=== PATIENT | female | born 1995 | race Caucasian/White ===

== ENCOUNTER → 2018-01-12 11:04 | Outpatient (CLI) | payer OTHER, SELFPAY ==
[2018-01-12 12:10] LABS: hCG Titer Quant., Serum 1351 mIU/mL (<9 non-preg)
== END ==
PROVIDERS: Family Provider Family Medicine; PCP Family Medicine; Referring Provider Nurse Practitioner Women's Health; Visit Provider Nurse Practitioner Women's Health
DX: N91.2 Amenorrhea, unspecified (principal)
CPT/HCPCS: 36415; 84702

== ENCOUNTER → 2018-01-14 07:51 | Outpatient (CLI) | payer OTHER, SELFPAY ==
[2018-01-14 09:39] LABS: hCG Titer Quant., Serum 3346 mIU/mL (<9 non-preg)
--- OUTSIDE RECORDS SUMMARY | 2018-03-11 12:09 | XMS RPT_ITS ---
:1995 Author Organization OHIP Care Team Providers Name Role Phone Yazmin Mooney Attending Unavailable GARY FRANKS Referring Unavailable Napier, Molly Attending Unavailable Yazmin Mooney Referring Unavailable GARY FRANKS Primary Care Unavailable Yazmin Mooney Attending Unavailable Yazmin Mooney Referring Unavailable GARY FRANKS Primary Care Unavailable JesicaYazmin Attending Unavailable Yazmin Mooney Referring Unavailable GARY FRANKS Primary Care Unavailable NapierYazmin Attending Unavailable NapierYazmin Referring Unavailable GARY FRANKS Primary Care Unavailable PROBLEMS PROBLEMS DATE TYPE CONDITION / CODE ATTENDING STATUS SOURCE 01/30/2018 Unknown O99.89 - Other Yazmin Mooney Active [facility] specified diseases Community and conditions Hospital complicating Repository , childbirth and the puerperium / O99.89(ICD-10) 01/27/2018 Unknown Z34.90 - Encounter Yazmin Mooney Active [place] for supervision of [facility] normal , Hospital unspecified, Repository unspecified trimester / Z34.90(ICD-10) 01/27/2018 Unknown Z34.01 - Encounter Yazmin Mooney Active [place] [facility] for supervision of [facility] normal first Hospital , first Repository trimester / Z34.01(ICD-10) 01/27/2018 Unknown Z3A.01 - Less than Yazmin Mooney Active [facility] 8 weeks gestation Community of / Hospital Z3A.01(ICD-10) Repository PROCEDURES PROCEDURES No Procedure Records FoundRESULTS RESULTS GLUCOSE CHALLENGE GEST Collected: 01/27/2018 Status: F Source: LD 1H 50G 10:00 AM [facility] REPOSITORY TYPE CODE TESTS RESULT OUT OF RANGE REFERENCE UNITS LAB L501.0250 70-140 mg/dL Normal GLU GEST 114 50g 1H Performed By: #### L501.0250 #### [facility] [address] [place] [address], [id number] CBC W/DIFF, AUTOMATED Collected: 01/27/2018 Status: F Source: LD 9:51 AM [facility] REPOSITORY TYPE CODE TESTS RESULT OUT OF RANGE REFERENCE UNITS LAB L100.1000 4.4-11.0 K/mm3 Normal WBC 5.9 LAB L100.1200 4.2-5.4 M/mm3 Low RBC 4.15 LAB L100.1300 12.0-15.0 g/dl Normal HGB 12.9 LAB L100.1400 37-47 % Normal HCT 37.0 LAB L100.1500 81-99 fL Normal MCV 89.2 LAB L100.1600 27.0-32.0 pg Normal MCH 31.1 LAB L100.1700 32-36 g/gl Normal MCHC 34.9 LAB L100.1810 11.6-14.6 % Normal RDW CV 13.1 LAB L100.1820 35.1-43.9 fl Normal RDW SD 42.1 LAB L100.1900 150-450 K/mm3 Normal PLT 220 LAB L100.2000 6.2-12.0 fl Normal MPV 9.9 LAB L100.2100 47-70 % High NEUT% 75.5 LAB L100.2200 19-41 % Low LY% 18.8 LAB L100.2300 0-10 % Normal MONO% 5.1 LAB L100.2400 0-5 % Normal EO% 0.2 LAB L100.2500 0-1 % Normal BASO% 0.2 LAB L100.2550 0.0-0.9 % Normal IM GRAN % 0.200 Result Comment: IG% - Immature Granulocytes (promyelocytes, myelocytes and metamyelocytes) > 1% indicates that a LEFT SHIFT is Present. LAB L100.2620 2.0-7.7 X10 3/uL Normal Absolute Neut 4.5 LAB L100.2720 0.83-4.51 X10 3/ul Normal Absolute Lymph 1.11 Performed By: #### L100.0100 #### [facility] [address] [place], [place], [address] TYPE AND SCREEN Collected: 01/27/2018 Status: F Source: VANDEMERE 9:51 AM [facility] REPOSITORY Order Comment: Reason for Type AND Screen/Red Cells: TYPE CODE TESTS RESULT OUT OF RANGE REFERENCE UNITS LAB B10.0800 O Normal BLOOD TYPE GEL POSITIVE LAB B100.4000 Normal Antibody NEGATIVE Screen Performed By: #### B101.7450 #### [facility] [address] [place], [place], [address] RUBELLA IGG Collected: 01/27/2018 Status: F Source: VANDEMERE 9:51 [facility] REPOSITORY TYPE CODE TESTS RESULT OUT OF RANGE REFERENCE UNITS LAB L509.4000 IU/mL Normal Rubella IgG 172.1 Result Comment: Antibody results Interpretation of Immune Status < 5 IU/ml Presumed Non-immune 5 - < 10 IU/ml Equivocal > or = 10 IU/ml Presumed Immune Performed By: #### L509.4000, L3890.6005 #### [facility] [address] [place], [place], [address] HIV - H Collected: 01/27/2018 Status: F Source: LD 9:51 AM [facility] REPOSITORY TYPE CODE TESTS RESULT OUT OF RANGE REFERENCE UNITS LAB L3890.6005 Nonreactive Normal HIV - [facility] Non-Reactive Performed By: #### L509.4000, L3890.6005 #### [facility] [address] [place], [place], [address] HEPATITIS B SURFACE Collected: 01/27/2018 Status: F Source: LD AG 9:51 AM [facility] REPOSITORY TYPE CODE TESTS RESULT OUT OF RANGE REFERENCE UNITS LAB L3100.0400 Negative Normal HB Negative SURF AG Result Comment: Performed at: [facility] [id number] Clinical Team Manager: Figueroa Colunga PhD, Phone: [phone] Performed By: #### L3100.0390 #### [facility] (refer to report for specific site) refer to report for address and phone number RAPID PLASMIN REAGIN Collected: 01/27/2018 Status: F Source: LD (RPR) 9:51 AM [facility] REPOSITORY TYPE CODE TESTS RESULT OUT OF REFERENCE UNITS RANGE LAB L700.5000 NONREACTIVE NONREACTIVE Normal RPR Performed By: #### L700.5000 #### [facility] [address] [place], [place], [address] DETECTIVE AUTOMOBILE SECTION OFFICE VISIT Observed: 01/27/2018 Status: F Source: LD REPORT 9:50 AM [facility] REPOSITORY [facility] [address] [place] [address] OFFICE VISIT Date of Service: 01/27/18 MR#: [id number] Acct: [id number] Name: LILLIAN ELLIS Rep #: [id number] : 1995 Provider: TIARRA Mooney Age/Sex: 23/F Location: [facility] Status: Signed Intake Vital Signs01/27/18 Blood Pressure 120/78 01/27/18 Height 5 ft 7 in 01/27/18 Weight: 269 lb 01/27/18 Body Mass Index (BMI) 42.1 Intake Visit Reasons: NOB-LMP unknown (Approx 6 weeks) Chief Complaint: NEW OB Nurse Practitioner Per Diem Required: No Is patient in pain?: No Allergies acetaminophen [From Percocet] Adverse Reaction (Verified 01/27/18 08:54) Nausea oxycodone [From Percocet] Adverse Reaction (Verified 01/27/18 08:54) Nausea Medications vitamin#30 30 mg iron-10 mg iron-folic acid 1 mg- omg3 capsule cap PO cap 01/27/18 [History Confirmed 01/27/18] Last Menstral Period: 12/05/16 Zika: Zika virus screening: Negative : No PFSH PFSH Social History Smoking Status: Never smoker alcohol intake: never substance use type: does not use caffeine: Yes what type of physical activity do you participate in: walking seatbelt use: always do you feel safe at home: Yes additional social history: [facility] Sw[employer] patient works at [employer] Pregancy History 1 Elective abortions Hx Para Spontaneous abortions HPI NOB-LMP unknown (Approx 6 weeks): Details: LILLIAN ELLIS is a 23 year old who presents for New OB visit. OB Visit JESSI Calculator Estimated Delivery Date 09/18/18 Based on Ultrasound Date 01/27/18 Current WG 6w 4d Number 1 Expected Delivery Route/Plan Specific Issue/Plans flu vaccine: given minichart given: given tdap vaccine: [] rhogam: [] LARC form signed: [] labor support person: Cesar pain management: [] cut cord/dad catch: [] : [] PP control planned: [] special requests: [] Initial Weight: Not Recorded Date Weight BP Urine PrFHR FuHt Pres MoCTX DilationFetal StVisit NoProviderComments E ot v te GA G Effac lucose ed Menstrual History Last Menstral Period: 12/05/16 Reported LMP: unknown On hormonal BC at conception: No hCG+: 01/08/18 Antepartum Record Genetic Screening: Congenital Heart Defect: Other, Neural Tube Defect: Other, Hemoglobinopathy Or Carrier: Other, Cystic Fibrosis: Other, Chromosome Abnormality: Other, Stuart-Sachs: Other, Hemophilia: Other, Intellectual Disability/Autism: Other, Recurrent Loss/Stillbirth: Other, Other Structural Defect: Other, Other Genetic Disease: Other, Maternal Metabolic Disorder: Other Comments/Counseling: Reviewed and negative Infection History: Live with someone with TB or Exposed to TB: No, Patient or Partner has history of Genital Herpes: No, Rash or Viral illness since last mentrual period: No, Prior GBS-Infected child: No, History of STD: No, HIV Infection: No, History of Hepatitis: No, Recent travel outside of [place]: Yes ([place]), Concern for Hep exposure: No, Varicella immune: Yes (had chicken pox) Medical History Medical History: Positive: Drug/latex allergies/reactions (percocet/nausea), Negative: Diabetes, Hypertension, Heart disease, Auto-immune disorder, Kidney disease/UTI, Neurologic/epilepsy, Psychiatric, Depression/ depression, Hepatitis/liver disease, Varicosities/phlebitis, Thyroid dysfunction, Trauma/domestic violence, History of blood transfusions, D (Rh) Sensitized, Pulmonary (e.g.,TB,Asthma), Seasonal allergies, Breast, Cushion Spring Assembler surgery, Operations/hospitalizations, Anesthetic complications, History of abnormal pap, Uterine anomaly/hudson, Infertility, Anti-retroviral treatment, Relevant family history, Other ACOG First Trimester First Trimester: Desire for , Alcohol, Tobacco Cessation, Illicit/Recreational Drug/Substance Use, Intimate Partner Violence, Barriers to care, Unstable Housing, Communication Barriers, Environmental/Work Hazards, Anticipated Course of Care, Nurtrition and weight gain, Toxoplasmosis Precations, Use of Any medications, Sexual activity, Exercise, Dental Care, Sauna/Hot tub use, Seat Belt use, Childbirth classes/Hospital facilities, , Travel, Indications for US and Screening for Aneuploidy ROS Const Reports as per HPI Card Denies chest pain, Denies shortness of breath Resp Denies shortness of breath GI Denies change in stools Denies difficulty urinating, Denies abnormal vaginal bleeding, Denies vaginal odor, Denies vaginal itching, Denies vaginal discharge Exam Const General: cooperative, healthy appearing, well developed Nutritional Appearance: average body habitus, well nourished Orientation: oriented x3 Neck Neck: normal visual inspection Neck mass: No Thyroid: thyroid normal Chest Chest palpation AND inspection: normal inspection of the chest Breast inspection: normal inspection of the breasts, normal inspection of the axillae Resp Effort AND Inspection: normal respiratory effort GI Inspection: normal to inspection Palpation: soft, nontender, no masses External Female Exam: normal external appearance, normal appearance of the urethra Urethra: normal appearance of the urethra Speculum Exam - Vagina: normal appearance of the vagina, normal vaginal discharge Speculum Exam - Cervix: normal appearance of the cervix, closed cervix, other (thin prep pap with reflex HPV, GCC collected) Bimanual Exam- Vagina AND Uterus: normal bimanual exam, uterine shape normal, uterine size normal Bimanual Exam- Adnexa, other: normal adnexae, no adnexal masses, adnexae non-tender Other: US confirm active IUD with FHT CRL 8mm with gest 6 w 4 d Skin General: no rashes or lesions noted, turgor normal Assessment AND Plan Problems 1. Encounter for supervision of normal first in first trimester Z34.01 Grav 1 JESSI 09/18/18 Spouse Cesar 2. Less than 8 weeks gestation of Z3A.01 Checking insurance/wants genetic screen. Plan Patient oriented to practice and discussed care expectations and screenings. ACOG book offered to patient. labs/zika ordered Genetic screening offered to patient and patient chose: plans screen/checking insurance coverage RTO 4 weeks Orders Orders: Coding Level of Care Code Off vis,est,level 4 Diagnoses Encounter for supervision of normal first in first trimester Z34.01 Trimester: first trimester Less than 8 weeks gestation of Z3A.01 Weeks of gestation: less than 8 weeks 01/27/18 0950 <Electronically signed by Yazmin HAQUE> Date Yazmin HAQUE Cosigner Signature: Date (if applicable) CC: CT/NG [facility] BY PCR Collected: 01/27/2018 Status: F Source: LD 9:00 AM [facility] REPOSITORY TYPE CODE TESTS RESULT OUT OF RANGE REFERENCE UNITS LAB L8200.2100 Negative Normal Chlam Negative Trac PCR LAB L8200.2200 Negative Normal NG by Negative PCR Performed By: #### L8200.1999 #### [facility] [address] [place], [address] Observed: 01/27/2018 Status: F Source: LD CULTURE, URINE 9:00 AM [facility] REPOSITORY Urine Culture ORGANISM 1: Presumptive E. coli Tresckow Count 11,000-25,000 Presumptive E. coli: REACTION Amoxacillin/Clavulanic Acid $ <=2 S Ampicillin $ <=2 S Ampicillin/Sulbactam $ <=2 S Cefazolin $ <=4 S Cefepime $ <=1 S Ceftriaxone $ <=1 S Ciprofloxacin $ <=0.25 S ESBL - Ertapenim $$$ <=0.5 S Gentamicin $ <=1 S Imipenem *NF <=0.25 S Levofloxacin $ <=0.12 S Nitrofurantoin $ <=16 S Piperacillin/Tazobactam $$ <=4 S Tobramycin $ <=1 S Trimethoprim/Sulfametho $ <=20 S (NF) indicates non-formulary drug at [facility]. Approval by Infectious Disease Specialist required before non-formulary drugs may be ordered and/or dispensed. Performed By: #### M100.0650 #### [facility] [address] [place], [address] PAP I-G W/RFX Collected: 01/27/2018 Status: F Source: LD HRHPV-APTIMA 9:00 AM [facility] REPOSITORY Order Comment: CYTOLOGY INFORMATION: - CLINICAL INFORMATION: - DATE LMP/MENOPAUSE: - COLLECTION VIAL: Thin Prep Vial - SUPERVISOR LOOPING SOURCE: CERVICAL/ENDOCERVICAL - COLLECTION TECHNIQUE: BRUSH/SPATULA Specimen Comment: [id number] Specimen Comment: Source.............Cervix;Endocervix Specimen Comment: No. of containers..01 ThinPrep Vial TYPE CODE TESTS RESULT OUT OF RANGE REFERENCE UNITS LAB L7400.0800 . Normal DIAGN Comment Result Comment: NEGATIVE FOR INTRAEPITHELIAL LESION AND MALIGNANCY. CELLULAR CHANGES ASSOCIATED WITH INFLAMMATION ARE PRESENT. LAB L7400.0900 . Normal ADEQ Comment Result Comment: Satisfactory for evaluation. Endocervical and/or squamous metaplastic cells (endocervical component) are present. Partially obscuring thick areas are present. LAB L7400.1400 . Normal PERFORM Comment Result Comment: Leslie Wetzel, Rug Cleaner (ASCP) LAB L7400.3938 . Normal Test not TEST METHOD performed Result Comment: The Thin Prep(R) Concrete Layer was unable to read this specimen. Therefore a manual review was performed. LAB L7400.2600 . Normal . COMM LAB L7400.2700 . Normal PAPSMR Comment Result Comment: The Pap smear is a screening test designed to aid in the detection of premalignant and malignant conditions of the uterine cervix. It is not a diagnostic procedure and should not be used as the sole means of detecting cervical cancer. Both false-positive and false-negative reports do occur. LAB L7400.2800 . Normal HPV RFLX Comment Result Comment: The HPV DNA reflex criteria were not met with this specimen result therefore, no HPV testing was performed. Performed at: [facility] [address] [id number] Clinical Team Manager: Pauline Mercado MD, Phone: [phone] Performed By: #### L7400.0353 #### [facility] (refer to report for specific site) refer to report for address and phone number TRANSVAGINAL W/PREG US Observed: 01/20/2018 Status: F Source: VANDEMERE 3:35 PM [facility] REPOSITORY [facility] Imaging Services [address] [place] [address] Transvaginal w/Preg US MR#: [id number] Acct: [id number] Name: LILLIAN ELLIS Blayne Rep #: [id number] : 1995 F 22 From: Vladimir Richards MD PCP: Gary Franks MD Status: REG CLI Study: Transvaginal w/Preg US Date of Exam: 01/20/18 Exam# [id number] Ordering Dr: Yazmin Mooney FILLING ROOM OPERATOR-Harsha STUDY: FIRST TRIMESTER OBSTETRICAL ULTRASOUND REASON FOR EXAM: Female, 22 years old. Pelvic pain LMP: 12/01/2017 TECHNIQUE: Transvaginal TECHNICAL QUALITY: Adequate. PRIOR ULTRASOUND: None. FINDINGS: There is visualization of a single gestational sac in a normal intrauterine position. The mean sac diameter (MSD) measures 1.46 cm, indicating an estimated gestational age (EGA) of 6 weeks, 2 days. The gestational sac shape is within normal limits. There is a visualized yolk sac. The yolk sac measures 0.32 cm. The placenta is non-visualized. There is visualization of a live embryo. The crown-rump length (CRL) measures 0.48 cm, indicating an estimated gestational age (EGA) of 6 weeks, 2 days. There is demonstrated cardiac activity with a heart rate of 111 bpm. The estimated gestation age (EGA) by LMP is 7 weeks, 1 days. The estimated date of delivery (JESSI) by LMP is 09/07/2018. The estimated gestation age (EGA) by US is 6 weeks, 2 days. The estimated date of delivery (JESSI) by US is 09/13/2018. The uterus measures 8.2 x 5.4 x 4.6 cm. There is no demonstrated uterine fibroid. The cervix is closed. The right ovary measures 3.8 x 3.1 x 2.4 cm. There are simple right ovarian cysts. The left ovary measures 2.6 x 1.8 x 1.3. There is no left ovarian cyst. There is no visualized left adnexal mass or complex lesion. There is no fluid in the cul de sac. US/Transvaginal w/Preg US IMPRESSION: Single live intrauterine at 6 weeks, 2 days by current ultrasound. JESSI of 09/13/2018. Heart rate of 111 bpm. No suspicious sonographic findings Electronically Signed: Kris Richards MD at 17:13 EST , Service support , CC: TIARRA Mooney; Gary Franks MD Wad Impregnator: Signed HCG TITER QUANT., Collected: 01/14/2018 Status: F Source: LD SERUM 7:56 AM [facility] REPOSITORY TYPE CODE TESTS RESULT OUT OF RANGE REFERENCE UNITS LAB L700.8000 <9 non-preg mIU/mL High HCG 3346 QUANT. Performed By: #### L700.8000 #### [facility] [address] [place], [address] HCG TITER QUANT., Collected: 01/12/2018 Status: F Source: LD SERUM 11:12 AM [facility] REPOSITORY TYPE CODE TESTS RESULT OUT OF RANGE REFERENCE UNITS LAB L700.8000 <9 non-preg mIU/mL High HCG 1351 QUANT. Performed By: #### L700.8000 #### [facility] [address] [place], [address] ALLERGIES ALLERGIES DATE TYPE / CODE NAME / CODE REACTION SEVERITY SOURCE 01/27/2018 Drug oxycodone/F0 Nausea Unknown [facility] Allergy/4160 [id number](RXN [facility] 95882(SNOMED ORM) Repository CT) 01/27/2018 Drug acetaminophe Nausea Unknown [facility] Allergy/4160 n/[id number] [place] [id number](SNOMED (RXNORM) Repository CT) ENCOUNTERS ENCOUNTERS ADMIT/DISCHARGE ACCOUNT ADMITTING ENCOUNTER LOCATION SOURCE NUMBER CLASS 01/27/2018 [id number] Ambulatory Ld [place] [facility] 9 [facility] ing:PAVLAB Repository 01/27/2018/ [id number] Ambulatory BMSBuilding:B [place] 8 8 [facility] Repository 01/20/2018 [id number] Ambulatory Ld [place] 6 [facility] ing:US Repository 01/14/2018 [id number] Ambulatory [place] 2 [facility] ing:LAB Repository 01/12/2018 [id number] Ambulatory [place] 0 [facility] ing:LAB Repository PAYERS PAYERS ENCOUNTER GUARANTOR PAYER SUBSCRIBER SOURCE 01/27/2018 LILLIAN ELLIS245 Primary LILLIAN MALDONADO: Ld JARA Insurance:MEDICAL [id number] [address]Via: (419) Number: Repository [phone] HP) [id number] Date:2018-01-27[address] [address]NK: 01/27/2018 Secondary NOT GIVENUNK [place] Insurance:SELF PAY [facility] Number: Effective Repository Date:2018-01-27 01/27/2018 LILLIAN ELLIS245 Primary LILLIAN ELLISDOB: Ld E JARA Insurance:MEDICAL [id number] [address]Kda: (419) Number: Repository [phone] () [id number] Date:2018-01-14[address] [place], [place] [address]WP: 01/27/2018 Secondary NOT GIVENUNK Ld Insurance:SELF PAY [facility] Number: Effective Repository Date:2018-01-27 01/20/2018 LILLIAN ELLIS245 Primary LILLIAN ELLISDOB: Ld E JARA Insurance:MEDICAL [id number] [address]Tnl: (419) Number: Repository [phone] () [id number] Date:2018-01-20[address] [place], [place] [address]: 01/20/2018 Secondary NOT GIVENUNK [place] Insurance:SELF PAY [facility] Number: Effective Repository Date:2018-01-20 01/14/2018 LILLIAN Cisneros [id number] Primary LILLIAN ELLISDOB: Ld E JARA Insurance:MEDICAL [id number] [address]Fqr: (419) Number: Repository [phone] () [id number] Date:2018-01-14[address] [place] [phone]: 01/14/2018 Secondary NOT GIVENUNK [place] Insurance:SELF PAY [facility] Number: Effective Repository Date:2018-01-14 01/12/2018 LILLIAN Cisneros [id number] Primary LILLIAN N CALEBDOB: [place] E JARA Insurance:MEDICAL [id number] [address]Sep: (419) Number: Repository [phone] (HP) [id number] Date:2018-01-12[address], [place] [address]AM: 01/12/2018 Secondary NOT GIVENUNK [place] Insurance:SELF PAY [facility] Number: Effective Repository Date:2018-01-12
== END ==
PROVIDERS: Family Provider Family Medicine; PCP Family Medicine; Referring Provider Nurse Practitioner Women's Health; Visit Provider Nurse Practitioner Women's Health
DX: N91.2 Amenorrhea, unspecified (principal)
CPT/HCPCS: 36415; 84702

== ENCOUNTER → 2018-01-20 15:33 | Outpatient (CLI) | payer OTHER, SELFPAY ==
--- NOTE | 2018-01-20 15:35 | US_ITS ---
STUDY: FIRST TRIMESTER OBSTETRICAL ULTRASOUND REASON FOR EXAM: Female, 22 years old. Pelvic pain LMP: 12/01/2017 TECHNIQUE: Transvaginal TECHNICAL QUALITY: Adequate. PRIOR ULTRASOUND: None. FINDINGS: There is visualization of a single gestational sac in a normal intrauterine position. The mean sac diameter (MSD) measures 1.46 cm, indicating an estimated gestational age (EGA) of 6 weeks, 2 days. The gestational sac shape is within normal limits. There is a visualized yolk sac. The yolk sac measures 0.32 cm. The placenta is non-visualized. There is visualization of a live embryo. The crown-rump length (CRL) measures 0.48 cm, indicating an estimated gestational age (EGA) of 6 weeks, 2 days. There is demonstrated cardiac activity with a heart rate of 111 bpm. The estimated gestation age (EGA) by LMP is 7 weeks, 1 days. The estimated date of delivery (JESSI) by LMP is 09/07/2018. The estimated gestation age (EGA) by US is 6 weeks, 2 days. The estimated date of delivery (JSESI) by US is 09/13/2018. The uterus measures 8.2 x 5.4 x 4.6 cm. There is no demonstrated uterine fibroid. The cervix is closed. The right ovary measures 3.8 x 3.1 x 2.4 cm. There are simple right ovarian cysts. The left ovary measures 2.6 x 1.8 x 1.3. There is no left ovarian cyst. There is no visualized left adnexal mass or complex lesion. There is no fluid in the cul de sac. US/Transvaginal w/Preg US IMPRESSION: Single live intrauterine at 6 weeks, 2 days by current ultrasound. JESSI of 09/13/2018. Heart rate of 111 bpm. No suspicious sonographic findings Electronically Signed: Kris Richards MD at 17:13 EST , Service support ,
== END ==
PROVIDERS: Family Provider Family Medicine; PCP Family Medicine; Referring Provider Nurse Practitioner Women's Health; Visit Provider Nurse Practitioner Women's Health
DX: O46.90 Antepartum hemorrhage, unspecified, unspecified trimester (principal)
CPT/HCPCS: 76817

== ENCOUNTER → 2018-01-27 09:44 | Outpatient (CLI) | payer OTHER, SELFPAY ==
[2018-01-27 08:54] VITALS: BMI 42.1
[2018-01-27 10:21] LABS: Absolute Lymphocyte Count 1.11 X10^3/ul (0.83-4.51); Absolute Neutrophil Count 4.5 X10^3/uL (2.0-7.7); Basophil# 0.01 X10^3/uL; Basophil% 0.2 % (0-1); Eosinophil# 0.01 X10^3/uL; Eosinophils% 0.2 % (0-5); Hemoglobin 12.9 g/dl (12.0-15.0); Lymphocyte # 1.11 X10^3/ul (4.0); Lymphocyte % 18.8 % (19-41); Mean Corp Hgb Conc 34.9 g/gl (32-36); Mean Corpuscular Hgb 31.1 pg (27.0-32.0); Mean Corpuscular Volume 89.2 fL (81-99); Mean Platelet Vol. 9.9 fl (6.2-12.0); Monocyte% 5.1 % (0-10); Neutrophil # 4.45 X10^3/uL (2.7-7.7); Neutrophil % 75.5 % (47-70); Platelet Count 220 K/mm3 (150-450); RBC Distribution Width CV 13.1 % (11.6-14.6); RBC Distribution Width SD 42.1 fl (35.1-43.9); Red Blood Count 4.15 M/mm3 (4.2-5.4); White Blood Count 5.9 K/mm3 (4.4-11.0)
[2018-01-27 10:23] LABS: POSITIVE COUNT NO; POSITIVE DIFFERENTIAL NO; POSITIVE MORPHOLOGY NO
[2018-01-27 10:40] LABS: Glucose Challenge Gest 1H 50g 114 mg/dL (70-140)
[2018-01-27 11:55] LABS: HIV - WCH Non-Reactive (Nonreactive); Rubella IgG 172.1 IU/mL
[2018-01-27 16:10] LABS: Chlamydia Trachomatis by PCR Negative (Negative); Neisserai gonorrhoeae by PCR Negative (Negative); Probe Check PASS; Sample Adequacy Control PASS; Specimen Processing Control PASS
[2018-01-28 13:19] LABS: HEPATITIS B SURFACE AG Negative (Negative)
[2018-01-30 04:54] LABS: Rapid Plasmin Reagin (RPR) NONREACTIVE (NONREACTIVE)
[2018-02-02 15:26] LABS: HPV Reflexed? NOT INDICATED
--- OUTSIDE RECORDS SUMMARY | 2018-03-15 09:27 | XMS RPT_ITS ---
:1995 Author Organization [place] Support Name Relationship Address Phone DOE ISRAEL Unavailable Unavailable + COLONIAL Unavailable [address] + [place] [address] CESAR ELLIS Unavailable [address] + [place] [address] DOE ISRAEL Unavailable Unavailable + [place] [address] COLONIAL Unavailable [address] + [place] [address] CESAR ELLIS Unavailable [address] + [place] [address] COLONIAL Unavailable [address] + [place] [address] CESAR ELLIS Unavailable [address] + [place] [address] COLONIAL Unavailable [address] + [place] [address] CESAR ELLIS Unavailable [address] + [place] [address] COLONIAL Unavailable [address] + [place] [address] CESAR ELLIS Unavailable [address] + [place] [address] COLONIAL Unavailable [address] + [place] [address] CESAR ELLIS Unavailable [address] + [place] [address] COLONIAL Unavailable [address] + [place] [address] CESAR ELLIS Unavailable [address] + [place] [address] COLONIAL Unavailable [address] + [place] [address] CESAR ELLIS Unavailable [address] + [place] [address] Care Team Providers Name Role Phone Jesica, Yazmin Attending Unavailable TOMCHAK, GARY Referring Unavailable Jesica, Yazmin Attending Unavailable Arivaca, Yazmin Referring Unavailable TOMCHAK, GARY Primary Care Unavailable Arivaca, Yazmin Attending Unavailable Arivaca, Yazmin Referring Unavailable TOMCHAK, GARY Primary Care Unavailable Marcanthony, Giovanna Attending Unavailable TOMCHAK, GARY Referring Unavailable Marcanthony, Giovanna Attending Unavailable Marcanthony, Giovanna Referring Unavailable TOMCHAK, GARY Primary Care Unavailable Marcanthony, Giovanna Attending Unavailable TOMCHAK, GARY Primary Care Unavailable Arivaca, Yazmin Attending Unavailable Jesica, Yazmin Referring Unavailable TOMCHAK, GARY Primary Care Unavailable Jesica, Yazmin Attending Unavailable Jesica, Yazmin Referring Unavailable TOMCHAK, GARY Primary Care Unavailable PROBLEMS PROBLEMS DATE TYPE CONDITION / CODE ATTENDING STATUS SOURCE 03/03/2018 Unknown Z34.81 - Encounter Ethan, Active [place] for supervision of [facility] normal Hospital , first Repository trimester / Z34.81(ICD-10) 02/27/2018 Unknown O23.40 - Ethan, Active [place] Unspecified [facility] infection of Hospital urinary tract in Repository , unspecified trimester / O23.40(ICD-10) 02/27/2018 Unknown Z34.01 - Encounter Ethan, Active [place] for supervision of [facility] normal first Hospital , first Repository trimester / Z34.01(ICD-10) 02/27/2018 Unknown O23.41 - Ethan, Active [place] Unspecified [facility] infection of Hospital urinary tract in Repository , first trimester / O23.41(ICD-10) 02/27/2018 Unknown Z3A.11 - 11 weeks Ethan, Active [place] gestation of [facility] / Hospital Z3A.11(ICD-10) Repository 02/12/2018 Unknown O99.89 - Other Arivaca, Yazmin Active [place] specified diseases Community and conditions Hospital complicating Repository , childbirth and the puerperium / O99.89(ICD-10) 01/27/2018 Unknown Z34.90 - Encounter Yazmin Mooney Active [place] for supervision of Community normal , Hospital unspecified, Repository unspecified trimester / Z34.90(ICD-10) 01/27/2018 Unknown Z3A.01 - Less than Jesica Yazmin Active [place] 8 weeks gestation Community of / Hospital Z3A.01(ICD-10) Repository PROCEDURES PROCEDURES No Procedure Records FoundRESULTS RESULTS Observed: 02/27/2018 Status: F Source: [place] CULTURE, URINE 1:55 PM [facility] REPOSITORY Urine Culture ORGANISM 1: Mixed Gram Positive Organisms [place] Count 1000-10,000 MIX CULTURE Mixed contaminants. Submit a new specimen if indicated. Performed By: #### M100.0650 #### [facility] [address] [place], [address] CUPOLA OPERATOR OFFICE VISIT Observed: 02/27/2018 Status: F Source: LD REPORT 10:30 AM [facility] REPOSITORY [facility] [address] [place] [address] OFFICE VISIT Date of Service: 02/27/18 MR#: [id number] Acct: [id number] Name: LILLIAN ELLIS Rep #: [id number] : 1995 Provider: Giovanna Long MD Age/Sex: 23/F Location: [facility] Status: Signed Intake Vital Signs02/27/18 Height 5 ft 7 in 02/27/18 Weight: 267 lb 2 oz 02/27/18 Body Mass Index (BMI) 41.8 02/27/18 Blood Pressure 138/84 H Intake Visit Reasons: 10 WEEK OB Rental Management Trainee Required: No Is patient in pain?: No Allergies acetaminophen [From Percocet] Adverse Reaction (Verified 02/27/18 09:49) Nausea oxycodone [From Percocet] Adverse Reaction (Verified 02/27/18 09:49) Nausea Medications vitamin#30 30 mg iron-10 mg iron-folic acid 1 mg- omg3 capsule cap PO cap 01/27/18 [History Confirmed 02/27/18] Last Menstral Period: 11/17/17 Zika: Zika virus screening: Negative : No PFSH PFSH Social History Smoking Status: Never smoker alcohol intake: never substance use type: does not use caffeine: Yes what type of physical activity do you participate in: walking seatbelt use: always do you feel safe at home: Yes additional social history: [employer] patient works at [employer] Pregancy History 1 Elective abortions Hx Para Spontaneous abortions HPI 10 WEEK OB: Details: LILLIAN ELLIS is a 23 year old who presents for routine OB visit. OB Visit JESSI Calculator Estimated Delivery Date 09/18/18 Based on Ultrasound Date 01/27/18 Current WG 11w 0d Number 1 Expected Delivery Route/Plan Specific Issue/Plans flu vaccine: given minichart given: given tdap vaccine: [] rhogam: [] LARC form signed: [] labor support person: Cesar pain management: [] cut cord/dad catch: [] : [] PP control planned: [] special requests: [] Initial Weight: 269 lb Date Weight BP Urine PFHR FuHt Pres MCTX DilatioFetal SVisit NProvideComment rot ov n t ote r s EGA Ef Gluco faced se 01/27/1269 lb 120/78 122 8 (+0 oz) 6w 4d Visit Notes Visit Date: 02/27/18 no vb lof cramping some nausea plan nipt Giovanna Long MD on 02/27/18 Visit Date: 01/27/18 No visit notes to display Diagnostics Diagnostics Labs Blood Type O POSITIVE 01/27/18 Antibody Screen NEGATIVE 01/27/18 Hct 37.0 % (37-47) 01/27/18 Hgb 12.9 g/dl (12.0-15.0) 01/27/18 Obstetrics Ultrasound 01/20/18 Rubella IgG Antibody 172.1 IU/mL 01/27/18 RPR NONREACTIVE (NONREACTIVE) 01/27/18 Hep Bs Antigen Negative (Negative) 01/27/18 Chlam trachomat DNA PCR Negative (Negative) 01/27/18 N.gonorrhoeae DNA (PCR) Negative (Negative) 01/27/18 Glucose 1 Hr 50 gm 114 mg/dL (70-140) 01/27/18 Miscellaneous Test 01/27/18 Details: HIV: Urine Culture: Sequential Screen: NIPT Screen: Results [id number] Office Urine Glucose Negative Last Edit by Verena Dukes on 02/27/18 10:13 Office Urine Protein Negative Last Edit by Verena Dukes on 02/27/18 10:13 Assessment AND Plan Problems 1. Urinary tract infection in mother during first trimester of O23.41 Ampicillin Rx. Needs repeat culture 2. 11 weeks gestation of Z3A.11 Checking insurance/wants genetic screen. 3. Encounter for supervision of normal first in first trimester Z34.01 PRR JESSI 09/18/18 Spouse Cesar Chapman A[employer]G trimester education reviewed and updated. see problem list details for updated plan management information and see below for orders placed at this visit. GA appropriate handout given. Orders Orders: Coding Level of Care Code OB Routine Diagnoses Urinary tract infection in mother during first trimester of O23.41 Trimester: first trimester 11 weeks gestation of Z3A.11 Weeks of gestation: 11 weeks Encounter for supervision of normal first in first trimester Z34.01 Trimester: first trimester 02/27/18 1030 <Electronically signed by Giovanna Long MD> Date Giovanna Long MD Cosigner Signature: Date (if applicable) CC: GLUCOSE CHALLENGE GEST Collected: 01/27/2018 Status: F Source: LD 1H 50G 10:00 AM [facility] REPOSITORY TYPE CODE TESTS RESULT OUT OF RANGE REFERENCE UNITS LAB L501.0250 70-140 mg/dL Normal GLU GEST 114 50g 1H Performed By: #### L501.0250 #### [facility] [address] [place], [address] CBC W/DIFF, AUTOMATED Collected: 01/27/2018 Status: F Source: LD 9:51 AM [facility] REPOSITORY TYPE CODE TESTS RESULT OUT [...] Lymph 1.11 Performed By: #### L100.0100 #### [facility] [address] [place], [address] TYPE AND SCREEN Collected: 01/27/2018 Status: F Source: LD 9:51 AM [facility] REPOSITORY Order Comment: Reason for Type AND Screen/Red Cells: TYPE CODE TESTS RESULT OUT OF RANGE REFERENCE UNITS LAB B10.0800 O Normal BLOOD TYPE GEL POSITIVE LAB B100.4000 Normal Antibody NEGATIVE Screen Performed By: #### B101.7450 #### [facility] [address] [place], [place], [address] RUBELLA IGG Collected: 01/27/2018 Status: F Source: LD 9:51 AM [facility] REPOSITORY TYPE CODE TESTS RESULT OUT OF RANGE REFERENCE UNITS LAB L509.4000 IU/mL Normal Rubella IgG 172.1 Result Comment: Antibody results Interpretation of Immune Status < 5 IU/ml Presumed Non-immune 5 - < 10 IU/ml Equivocal > or = 10 IU/ml Presumed Immune Performed By: #### L509.4000, L3890.6005 #### [facility] [address] [place], [place], [address] HIV - [facility] Collected: 01/27/2018 Status: F Source: LD 9:51 AM [facility] REPOSITORY TYPE CODE TESTS RESULT OUT OF RANGE REFERENCE UNITS LAB L3890.6005 Nonreactive Normal HIV - [facility] Non-Reactive Performed By: #### L509.4000, L3890.6005 #### [facility] [address] [place], [place], [address] HEPATITIS B SURFACE Collected: 01/27/2018 Status: F Source: LD AG 9:51 AM [facility] REPOSITORY TYPE CODE TESTS RESULT OUT OF RANGE REFERENCE UNITS LAB L3100.0400 Negative Normal HB Negative SURF AG Result Comment: Performed at: - [facility] [id number] Real Estate Subagent: Figueroa Colunga PhD, Phone: [phone] Performed By: #### L3100.0390 #### [facility] (refer to report for specific site) refer to report for address and phone number RAPID PLASMIN REAGIN Collected: 01/27/2018 Status: F Source: LD (RPR) 9:51 AM [facility] REPOSITORY TYPE CODE TESTS RESULT OUT OF REFERENCE UNITS RANGE LAB L700.5000 NONREACTIVE NONREACTIVE Normal RPR Performed By: #### L700.5000 #### [facility] [address] [place], [place], [address] CUPOLA OPERATOR OFFICE VISIT Observed: 01/27/2018 Status: F Source: [place] REPORT 9:50 AM [facility] REPOSITORY [facility] [address] [place] [address] OFFICE VISIT Date of Service: 01/27/18 MR#: [id number] Acct: [id number] Name: LILLIAN ELLIS Rep #: [id number] : 1995 Provider: TIARRA Mooney Age/Sex: 23/F Location: [facility] Status: Signed Intake Vital Signs01/27/18 Blood Pressure 120/78 01/27/18 Height 5 ft 7 in 01/27/18 Weight: 269 lb 01/27/18 Body Mass Index (BMI) 42.1 Intake Visit Reasons: NOB-LMP unknown (Approx 6 weeks) Chief Complaint: NEW OB Rental Management Trainee Required: No Is patient in pain?: No [...] safe at home: Yes additional social history: [facility] patient works at [employer] Pregancy History 1 Elective abortions Hx Para [...] No, Recent travel outside of [place]: Yes ([place]), Concern for Hep exposure: No, Varicella immune: Yes (had chicken pox) Medical History Medical History: Positive: Drug/latex allergies/reactions (percocet/nausea), Negative: Diabetes, Hypertension, Heart disease, Auto-immune disorder, Kidney disease/UTI, Neurologic/epilepsy, Psychiatric, Depression/ depression, Hepatitis/liver disease, Varicosities/phlebitis, Thyroid dysfunction, Trauma/domestic violence, History of blood transfusions, D (Rh) Sensitized, Pulmonary (e.g.,TB,Asthma), Seasonal allergies, Breast, [facility] surgery, Operations/hospitalizations, Anesthetic complications, History of abnormal [...] <Electronically signed by Yazmin HAQUE> Date Yazmin Mooney CHARTER BOAT OPERATOR-C Pepeigner Signature: Date (if applicable) CC: CT/NG [facility] BY PCR Collected: 01/27/2018 Status: F Source: [place] 9:00 [facility] REPOSITORY TYPE CODE TESTS RESULT OUT OF RANGE REFERENCE UNITS LAB L8200.2100 Negative Normal Chlam Negative Trac PCR LAB L8200.2200 Negative Normal NG by Negative PCR Performed By: #### L8200.2000 #### [facility] [address] [place], [place], [address] Observed: 01/27/2018 Status: F Source: [place] CULTURE, URINE 9:00 [facility] REPOSITORY Urine Culture ORGANISM 1: Presumptive E. coli [place] Count 11,000-25,000 Presumptive E. coli: REACTION Amoxacillin/Clavulanic [...] <=20 S (NF) indicates non-formulary drug at [facility]. Approval by Infectious Disease Specialist required before non-formulary drugs may be ordered and/or dispensed. Performed By: #### M100.0650 #### [facility] [address] [place], [address] PAP I-G W/RFX Collected: 01/27/2018 Status: F Source: [place] HRHPV-APTIMA 9:00 [facility] REPOSITORY Order Comment: CYTOLOGY INFORMATION: - CLINICAL INFORMATION: - DATE LMP/MENOPAUSE: - COLLECTION VIAL: Thin Prep Vial - BOILER SHOP MECHANIC SOURCE: CERVICAL/ENDOCERVICAL - COLLECTION TECHNIQUE: BRUSH/SPATULA Specimen Comment: [id number] Specimen Comment: Source.............Cervix;Endocervix Specimen Comment: No. of [...] Normal PERFORM Comment Result Comment: Leslie Wetzel, Landscape Crew Member (ASCP) LAB L7400.2575 . Normal Test not TEST METHOD performed Result Comment: The Thin Prep(R) Manager Union was unable to read this specimen. Therefore [...] no HPV testing was performed. Performed at: - [facility] [id number] Real Estate Subagent: Pauline Mercado MD, Phone: [phone] Performed By: #### L7400.0353 #### [facility] (refer to report for specific site) refer to report for address and phone number MISCELLANEOUS LAB Collected: 01/27/2018 Status: F Source: LD PROCEDURE 9:00 AM [facility] REPOSITORY Order Comment: Comments: 063101 ZIKA FROZEN URINE Test(s) Ordered: 740689 ZIKA FROZEN URINE TYPE CODE TESTS RESULT OUT OF RANGE REFERENCE UNITS LAB L801.1541 Normal [facility] TEST Result Comment: TEST RESULT UNITS REF INTERVAL Zika Virus ALEX Comprehensive Zika Virus, ALEX, Serum NEGATIVE NEGATIVE Zika Virus, ALEX, Urine NEGATIVE NEGATIVE TESTING [facility]FOR[facility] AT [facility]. ORIGINAL REPORT ON FILE IN LAB CONTAINS ADDITIONAL TEST SITE INFORMATION. Performed By: #### L801.1541 #### [facility] [address] [place], [address] TRANSVAGINAL W/PREG US Observed: 01/20/2018 Status: F Source: [place] 3:35 PM [facility] REPOSITORY [facility] Imaging Services [address] [place] [address] Transvaginal w/Preg US MR#: [id number] Acct: [id number] Name: LILLIAN ELLIS Rep #: [id number] : 1995 F 22 From: Vladimir Richards MD PCP: Gary Schaefer MD Status: REG CLI Study: Transvaginal w/Preg US Date of Exam: 01/20/18 Exam# [id number] Ordering Dr: Yazmin Mooney CHARTER BOAT OPERATORFrancy STUDY: FIRST TRIMESTER OBSTETRICAL ULTRASOUND REASON FOR [...] Service support , CC: TIARRA Mooney; Gary Schaefer MD Rod Machine Operator: Signed HCG TITER QUANT., Collected: 01/14/2018 Status: F Source: [place] SERUM 7:56 AM [facility] REPOSITORY TYPE CODE TESTS RESULT OUT OF RANGE REFERENCE UNITS LAB L700.8000 <9 non-preg mIU/mL High HCG 3346 QUANT. Performed By: #### L700.8000 #### [facility] [address] [place], [address] HCG TITER QUANT., Collected: 01/12/2018 Status: F Source: LD SERUM 11:12 AM [facility] REPOSITORY TYPE CODE TESTS RESULT OUT OF RANGE REFERENCE UNITS LAB L700.8000 <9 non-preg mIU/mL High HCG 1351 QUANT. Performed By: #### L700.8000 #### [facility] [address] [place], [address] ALLERGIES ALLERGIES DATE TYPE / CODE NAME / CODE REACTION SEVERITY SOURCE 02/27/2018 Drug oxycodone/F0 Nausea Unknown [facility] Allergy/4160 [id number](RXN Hospital 36552(SNOMED ORM) Repository CT) 02/27/2018 Drug acetaminophe Nausea Unknown [facility] Allergy/4160 n/[id number] [facility](SNOMED (RXNORM) Repository CT) ENCOUNTERS ENCOUNTERS ADMIT/DISCHARGE ACCOUNT ADMITTING ENCOUNTER LOCATION SOURCE NUMBER CLASS 03/03/2018 [id number] Ambulatory [place] [facility] ing:PAVLAB Repository 02/27/2018 [id number] Ambulatory [place] [address] [facility] ing:LABSPEC Repository 02/27/2018/ [id number] Ambulatory BMSBuilding:B [place] 9 4 [facility] Repository 01/27/2018 [id number] Ambulatory [place] [address] [facility] ing:PAVLAB Repository 01/27/2018/ [id number] Ambulatory BMSBuilding:B [place] 8 8 [facility] Repository 01/20/2018 [id number] Ambulatory [place] [address] [facility] ing:US Repository 01/14/2018 [id number] Ambulatory [place] [address] [facility] ing:LAB Repository 01/12/2018 [id number] Ambulatory [place] Ld 0 [facility] ing:LAB Repository PAYERS PAYERS ENCOUNTER GUARANTOR PAYER SUBSCRIBER SOURCE 03/03/2018 LILLIAN ELLIS245 Primary LILLIAN MALDONADO: [place]d JARA Insurance:MEDICAL [id number] [address]Nmn: (419) Number: Repository [phone] () [id number] Date:2018-03-03[address] [place] [phone]: 03/03/2018 Secondary NOT GIVENUNK Ld Insurance:SELF PAY [facility] Number: Effective Repository Date:2018-03-03 02/27/2018 LILLIAN ELLIS245 Primary LILLIAN N CALEBDOB: [place] E JARA Insurance:MEDICAL [id number] [address]Ffa: (419) Number: Repository [phone] () [id number] Date:2018-02-27[address] [place] [phone]: 02/27/2018 Secondary NOT GIVENUNK Ld Insurance:SELF PAY [facility] Number: Effective Repository Date:2018-02-27 02/27/2018 LILLIAN PICHARDO5 Primary LILLIAN N CALEBDOB: [place] E JARA Insurance:MEDICAL [id number] [facility] [address]Syt: (419) Number: Repository [phone] () [id number] Date:2018-01-27[address] [place] [phone]: 02/27/2018 Secondary NOT GIVENUNK Ld Insurance:SELF PAY [facility] Number: Effective Repository Date:2018-02-27 01/27/2018 LILLIAN ELLIS245 Primary LILLIAN N CALEBDOB: [place] E JARA Insurance:MEDICAL [id number] [facility] Hospital [address]Lhd: (419) Number: Repository [phone] () [id number] Date:2018-01-27[address] [place] [phone]: 01/27/2018 Secondary NOT GIVENUNK Ld Insurance:SELF PAY [facility] Number: Effective Repository Date:2018-01-27 01/27/2018 LILLIAN Cisneros [id number] Primary LILLIAN N OTTDOB: [place] E JARA Insurance:MEDICAL [id number] [facility] Hospital [address]Bqw: (419) Number: Repository [phone] () [id number] Date:2018-01-14[address] [place] [phone]: 01/27/2018 Secondary NOT GIVENUNK Ld Insurance:SELF PAY [facility] Number: Effective Repository Date:2018-01-27 01/20/2018 LILLIAN N [id number] Primary LILLIAN N OTTDOB: [place] E JARA Insurance:MEDICAL [id number] Flower Hospital [address]Bzs: (419) Number: Repository [phone] () [id number] Date:2018-01-20[address] [place], [place] [phone]: 01/20/2018 Secondary NOT GIVENUNK Ld Insurance:SELF PAY [facility] Number: Effective Repository Date:2018-01-20 01/14/2018 LILLIAN ELLIS245 Primary LILLIAN N OTTDOB: [place] E JARA Insurance:MEDICAL [id number] Flower Hospital [address]Kty: (419) Number: Repository [phone] () [id number] Date:2018-01-14[address] [place] [phone]: 01/14/2018 Secondary NOT GIVENUNK [place] Insurance:SELF PAY [facility] Number: Effective Repository Date:2018-01-14 01/12/2018 LILLIAN N [id number] Primary LILLIAN N OTTDOB: [place] E JARA Insurance:MEDICAL [id number] Flower Hospital [address]Kll: (419) Number: Repository [phone] () [id number] Date:2018-01-12[address] [place] [address] [place] [phone]: 01/12/2018 Secondary NOT GIVENYOVANY Jaffe Insurance:SELF PAY [facility] Number: Effective Repository Date:2018-01-12
== END ==
PROVIDERS: Family Provider Family Medicine; PCP Family Medicine; Referring Provider Nurse Practitioner Women's Health; Visit Provider Nurse Practitioner Women's Health
DX: O99.89 Other specified diseases and conditions complicating pregnancy, childbirth and the puerperium (principal); Z20.821 Contact with and (suspected) exposure to Zika virus; Z12.4 Encounter for screening for malignant neoplasm of cervix; Z3A.00 Weeks of gestation of pregnancy not specified
CPT/HCPCS: 36415; 82950; 85025; 86592; 86703; 86762; 86850; 86900; 87086; 87088; 87186; 87340; 87491; 87591; 87624; 88175; G0145

== ENCOUNTER → 2018-02-27 13:34 | Outpatient (CLI) | payer OTHER, SELFPAY ==
[2018-02-27 13:34] VITALS: BMI 42.1
== END ==
PROVIDERS: Family Provider Family Medicine; PCP Family Medicine; Referring Provider Obstetrics & Gynecology; Visit Provider Obstetrics & Gynecology
DX: O23.40 Unspecified infection of urinary tract in pregnancy, unspecified trimester (principal); Z3A.00 Weeks of gestation of pregnancy not specified
CPT/HCPCS: 87086; 87088

== ENCOUNTER → 2018-03-03 10:58 | Outpatient (CLI) | payer OTHER, SELFPAY ==
[2018-02-27 13:34] VITALS: BMI 42.1
== END ==
PROVIDERS: Family Provider Family Medicine; PCP Family Medicine; Visit Provider Obstetrics & Gynecology
DX: Z34.81 Encounter for supervision of other normal pregnancy, first trimester (principal)
CPT/HCPCS: 36415

== ENCOUNTER → 2018-04-09 15:47 | Outpatient (CLI) | payer OTHER, SELFPAY ==
[2018-03-26 10:35] VITALS: BMI 42.1
== END ==
PROVIDERS: Family Provider Family Medicine; PCP Family Medicine; Referring Provider Obstetrics & Gynecology; Visit Provider Obstetrics & Gynecology
DX: Z36.9 Encounter for antenatal screening, unspecified (principal)
CPT/HCPCS: 36415

== ENCOUNTER → 2018-06-19 11:05 | Outpatient (CLI) | payer OTHER, SELFPAY ==
[2018-06-19 10:45] VITALS: BMI 42.1
[2018-06-19 13:58] LABS: Absolute Lymphocyte Count 1.34 X10^3/ul (0.83-4.51); Absolute Neutrophil Count 5.7 X10^3/uL (2.0-7.7); Basophil# 0.01 X10^3/uL; Basophil% 0.1 % (0-1); Eosinophil# 0.02 X10^3/uL; Eosinophils% 0.3 % (0-5); Hematocrit 32.9 % (37-47); Hemoglobin 11.1 g/dl (12.0-15.0); Lymphocyte # 1.34 X10^3/ul (4.0); Lymphocyte % 17.8 % (19-41); Mean Corp Hgb Conc 33.7 g/gl (32-36); Mean Corpuscular Hgb 31.7 pg (27.0-32.0); Mean Platelet Vol. 10.6 fl (6.2-12.0); Monocyte# 0.44 X10^3/uL; Monocyte% 5.8 % (0-10); Neutrophil % 75.7 % (47-70); Platelet Count 193 K/mm3 (150-450); RBC Distribution Width CV 14.4 % (11.6-14.6); RBC Distribution Width SD 48.9 fl (35.1-43.9); White Blood Count 7.5 K/mm3 (4.4-11.0)
[2018-06-19 14:04] LABS: POSITIVE COUNT NO; POSITIVE DIFFERENTIAL NO; POSITIVE MORPHOLOGY NO
[2018-06-19 14:09] LABS: Glucose Challenge Gest 1H 50g 117 mg/dL (70-140)
== END ==
PROVIDERS: Family Provider Family Medicine; PCP Family Medicine; Referring Provider Nurse Practitioner Women's Health; Visit Provider Nurse Practitioner Women's Health
DX: Z34.00 Encounter for supervision of normal first pregnancy, unspecified trimester (principal)
CPT/HCPCS: 36415; 82950; 85025

== ENCOUNTER 2018-08-24 14:05 | Outpatient (CLI) | payer OTHER, SELFPAY ==
[2018-08-14 09:54] VITALS: BMI 42.1
--- NOTE | 2018-08-24 12:24 | US_ITS ---
STUDY: SECOND AND THIRD TRIMESTER OBSTETRICAL ULTRASOUND REASON FOR EXAM: Female, 23 years old. growth. LMP: 12/12/2017 TECHNIQUE: Transabdominal TECHNICAL QUALITY: Adequate. PRIOR ULTRASOUND: None. FINDINGS: There is a single intrauterine fetus. The fetus is in a cephalic presentation. There is demonstrated cardiac activity with a heart rate of 140 bpm. There is a normal amniotic fluid volume. The largest amniotic fluid pocket measures 4.3 cm. The amniotic fluid index (PRAVIN) is 10.2 cm. The placenta is posterior in location and is not low lying. There are Grade 2 placental changes. The cervix measures 3.6 cm in length. The adnexal regions are not visualized. BIOMETRY: BPD: 8.7: 35 weeks, 1 days HC: 32.7: 37 weeks, 1 days AC: 33.2: 37 weeks, 1 days FL: 7.0: 36 weeks, 0 days CI: FL/BPD: FL/HC: FL/AC: HC/AC: age by current US: 36 weeks, 3 days. JESSI by current US: 09/18/2018. Estimated weight: 2977 grams, +/- 435 grams, 58 %. age by prior US: 37 weeks, 1 days. JESSI by prior US: 09/13/2018. Age by LMP: 36 weeks, 3 days. JESSI by LMP: 09/18/2018 IMPRESSION: Single live fetus in a vertex presentation. survey not performed on this exam. Placenta is grade 2 and is not low-lying. Cervix is closed. age by current US: 36 weeks, 3 days. JESSI by current US: 09/18/2018. Estimated weight: 2977 grams, +/- 435 grams, 58 %. Electronically Signed: Charly Reeder MD at 16:43 EDT , Service support , STUDY: OBSTETRICAL ULTRASOUND - BIOPHYSICAL PROFILE REASON FOR EXAM: Female, 23 years old. growth. LMP: 12/12/2017 PRIOR ULTRASOUND: 01/30/2018. TECHNIQUE: Transabdominal TECHNICAL QUALITY: Adequate. FINDINGS: There is a single intrauterine fetus. The fetus is in a cephalic presentation. There is demonstrated cardiac activity with a heart rate of 140 bpm. There is a normal amniotic fluid volume. The largest amniotic fluid pocket measures 4.3 cm. The amniotic fluid index (PRAVIN) is 10.2 cm. The placenta is posterior in location and is not low lying. There are Grade 2 placental changes. The cervix measures 3.6 cm in length. The adnexal regions are not visualized. age by current US: 36 weeks, 3 days. JESSI by current US: 09/18/2018. Estimated weight: 2977 grams, +/- 435 grams, 58 %. age by prior US: 37 weeks, 1 days. JESSI by prior US: 09/13/2018. Age by LMP: 36 weeks, 3 days. JESSI by LMP: 09/18/2018 BIOPHYSICAL PROFILE: Breathing Movements (FBM): 2 Gross Body Movements (GBM): 2 Tone (FT): 0 Amniotic Fluid Volume (AFV): 2 TOTAL SCORE: 6 / 8 US/OB Limited With Biometrics IMPRESSION: Abnormal biophysical profile with score of 6/8, because of tone score of 0. Electronically Signed: Charly Reeder MD at 16:46 EDT , Service support ,
[2018-08-24 14:19] VITALS: BMI 44.6
[2018-08-24] MEDS: Betamethasone/Betamethasone 30 MG/5 ML Vial 12 MG IM (15:01)
--- NOTE | 2018-08-25 23:04 | OB.TRI.PN ---
Progress Notes Date of Service: 08/25/18 Progress Note: NST secondary to BPP of 6 out of 8. Overall BPP 8 out of 10 and reassuring. Celestone given. heart tone 130 moderate variability reactive no decelerations category 1 tracing [place]: No regular contractions Assessment and plan abnormal testing, prolonged monitoring and NST reassuring and shows 8 out of 10 BPP recommend Celestone today and repeat Celestone tomorrow and repeat BPP tomorrow. Kick counts reviewed.
== END 2018-08-24 15:25 | disposition home or self-care (01) ==
LOC: OPUS 14:09 → WPOUT 14:11 → WP 14:11
PROVIDERS: Family Provider Family Medicine; PCP Family Medicine; Referring Provider Obstetrics & Gynecology; Visit Provider Obstetrics & Gynecology
DX: Z34.90 Encounter for supervision of normal pregnancy, unspecified, unspecified trimester (principal)
CPT/HCPCS: 59025; 59050; 76816; 76819; 96372; 99218; G0378; J0702

== ENCOUNTER → 2018-08-24 14:38 | Outpatient (CLI) | payer OTHER, SELFPAY ==
[2018-08-24 14:19] VITALS: BMI 44.6
== END ==
PROVIDERS: Family Provider Family Medicine; PCP Family Medicine; Referring Provider Nurse Practitioner Women's Health; Visit Provider Nurse Practitioner Women's Health
DX: O99.213 Obesity complicating pregnancy, third trimester (principal)
CPT/HCPCS: 87081

== ENCOUNTER 2018-08-25 13:58 | Outpatient (CLI) | payer OTHER, SELFPAY ==
[2018-08-24 14:19] VITALS: BMI 44.6
--- NOTE | 2018-08-25 14:14 | US_ITS ---
STUDY: OBSTETRICAL ULTRASOUND - BIOPHYSICAL PROFILE REASON FOR EXAM: Female, 23 years old. well-being. PRIOR ULTRASOUND: 08/24/2018 TECHNIQUE: Transabdominal ultrasound evaluation was performed. FINDINGS: There is a single intrauterine fetus. The fetus is in a cephalic presentation. There is demonstrated cardiac activity with a heart rate of 147 bpm. There is a normal amniotic fluid volume. The amniotic fluid index (PRAVIN) is 11.49 cm. The placenta is posterior in location and is not low lying. BIOPHYSICAL PROFILE: Breathing Movements (FBM): 2 Gross Body Movements (GBM): 2 Tone (FT): 2 Amniotic Fluid Volume (AFV): 2 TOTAL SCORE: US/Biophysical Prof W/O Non Stres IMPRESSION: Normal biophysical profile of 09/24. Electronically Signed: Tyler Carey, at 20:24 EDT Tel , Service support ,
[2018-08-25] MEDS: Betamethasone/Betamethasone 30 MG/5 ML Vial 12 MG IM (14:52)
--- NOTE | 2018-08-25 23:04 | OB.TRI.PN ---
Progress Notes Date of Service: 08/25/18 Progress Note: bpp repetaed and 09/24 celestone given
== END 2018-08-25 15:15 | disposition home or self-care (01) ==
LOC: WPOUT 14:02 → WP 14:13
PROVIDERS: Family Provider Family Medicine; PCP Family Medicine; Referring Provider Obstetrics & Gynecology; Visit Provider Obstetrics & Gynecology
DX: O60.00 Preterm labor without delivery, unspecified trimester (principal); Z3A.00 Weeks of gestation of pregnancy not specified
CPT/HCPCS: 76819; 96372; 99218; G0378; J0702

== ENCOUNTER 2018-09-14 12:00 | Inpatient (IN) | payer OTHER, SELFPAY ==
[2018-09-14 09:54] VITALS: BMI 45.4
[2018-09-14] MEDS: Lactated Ringers 1,000 ML 999 ML IV (11:05)
[2018-09-14 11:17] VITALS: BMI 45.4
[2018-09-14 11:25] LABS: Hematocrit 33.8 % (37-47); Hemoglobin 11.6 g/dL (12.0-15.0); Mean Corp Hgb Conc 34.3 g/dL (32-36); Mean Corpuscular Hgb 32.1 pg (27.0-32.0); Mean Corpuscular Volume 93.6 fL (81-99); Mean Platelet Vol. 11.1 fl (6.2-12.0); Platelet Count 184 K/mm3 (150-450); RBC Distribution Width SD 50.9 fl (35.1-43.9); Red Blood Count 3.61 M/mm3 (4.2-5.4); White Blood Count 9.5 K/mm3 (4.4-11.0)
[2018-09-14 11:33] LABS: Fibrinogen 614 mg/dl (203-444)
[2018-09-14] MEDS: Oxytocin 30 units/NS 500 ml 30 UNITS/500 ML IV.SOLN IV (13:14)
[2018-09-14 13:16] LABS: ALB/GLOB Ratio 0.6 RATIO (0.9-2.4); AST(SGOT) 13 U/L (15-37); Alanine Aminotransfer ALT/SGPT 14 U/L (13-56); Albumin, Serum 2.5 g/dL (3.2-5.0); Alkaline Phosphatase 182 U/L (45-117); Anion Gap 6 (5-15); BUN 8 mg/dL (7-18); BUN/Creat Ratio 14.4 RATIO (10-20); Calcium,Total 9.3 mg/dL (8.5-10.1); Chloride 109 mmol/L (98-107); Creatinine, Serum 0.55 mg/dL (0.55-1.02); EST Glomerular Filtration Rate 142 mL/min (>60); Est Glom Filt Rate - Afr Amer 172 mL/min (>60); Globulin 4.1 g/dL (2.2-4.2); Glucose 65 mg/dL (74-106); Potassium 4.1 mmol/L (3.5-5.1); Protein, Total 6.6 g/dL (6.4-8.2); Sodium Level 137 mmol/L (136-145)
[2018-09-14 13:41] LABS: Protein, Urine (Random) < 6.0 mg/dL (<11.9)
--- NOTE | 2018-09-14 13:59 | PCM.HP.OB ---
- Problem List (1) Obesity affecting in third trimester Status: Acute Comment: weekly nsts after 32 weeks growth q 4 (2) UTI in Status: Acute Qualifiers: Comment: Ampicillin Rx. Repeat culture Neg (3) Status: Acute Qualifiers: Comment: Niall- low risk-pt notified. AFP results are negative. Anatomy US complete and normal (4) Supervision of normal first Status: Acute Qualifiers: Comment: PRR JESSI 09/18/18 Boy Hayley Spouse Cesar (5) Gestational hypertension Status: Acute History Date of Admission: 09/14/18 Final JESSI: 09/18/18 Gestational age: 39 Weeks and 3 Days History of this : This is a 23 year-old, at 39 weeks gestational age presents with elevated blood pressures and initially tachycardia. Overall tracing is on a normal baseline and is reassuring and category 1. Blood pressures are 140s to 150s over 90s. She denies any headache or blurry vision and has normal labs and negative proteinuria.. Allergies oxycodone [From Percocet] Adverse Reaction (Verified 09/14/18 09:59) Nausea Home Medications: Home Medications vitamin#30 30 mg iron-10 mg iron-folic acid 1 mg-omg3 capsule 1 cap PO DAILY cap 01/27/18 Acetaminophen [Tylenol] 650 mg PO Q6H PRN PRN 09/14/18 Smoking Status: Never smoker Alcohol: None Number of Fetus(es): 1 Heart Tracin moderate variability reactive no decelerations category I tracing [place]: irregular History Past Pregnancies: Past Pregnancies Delivery Date Name GA/Weeks Outcome Route Weight Gender Labor Length Anesthesia Delivery Location Provider FOB Labs: Mom's Labs & Results 09/14/18 09/14/18 09/14/18 11:05 11:05 11:05 WBC 9.5 RBC 3.61 L Hgb 11.6 L Hct 33.8 L MCV 93.6 MCH 32.1 H MCHC 34.3 RDW Std Deviation 50.9 H RDW Coeff of Kulwinder 15.0 H Plt Count 184 MPV 11.1 Fibrinogen 614 H Sodium Potassium Chloride Carbon Dioxide Anion Gap BUN Creatinine Estim Creat Clear Calc Est GFR (MDRD) Af Amer Est GFR (MDRD) Non-Af BUN/Creatinine Ratio Glucose Calcium Total Bilirubin AST ALT Alkaline Phosphatase Total Protein Albumin Globulin Albumin/Globulin Ratio U Random Total Protein Urine Creatinine Protein/Creatinin Ratio Blood Type O POSITIVE Antibody Screen NEGATIVE 09/14/18 09/14/18 12:31 13:10 WBC RBC Hgb Hct MCV MCH MCHC RDW Std Deviation RDW Coeff of Kulwinder Plt Count MPV Fibrinogen Sodium 137 Potassium 4.1 Chloride 109 H Carbon Dioxide 22.0 Anion Gap 6 BUN 8 Creatinine 0.55 Estim Creat Clear Calc 159.10 Est GFR (MDRD) Af Amer 172 Est GFR (MDRD) Non-Af 142 BUN/Creatinine Ratio 14.4 Glucose 65 L Calcium 9.3 Total Bilirubin 0.20 AST 13 L ALT 14 Alkaline Phosphatase 182 H Total Protein 6.6 Albumin 2.5 L Globulin 4.1 Albumin/Globulin Ratio 0.6 L U Random Total Protein < 6.0 Urine Creatinine 14.60 Protein/Creatinin Ratio TNP Blood Type Antibody Screen Course Did the patient receive Yes care? Labs RPR/VDRL/Syphilis Nonreactive Rubella status Immune HbSAg Negative Date Done: 01/27/18 Chlamydia Negative Gonorrhea Negative HIV/AIDS Non-Reactive Current Obstetrical History Gestational Diabetes No Incompetent Cervix No Infertility No IUGR No Macrosomia No Hypertension/Pre-eclampsia Yes: gestational HTN Placenta Previa/Abruption No PTL/PROM No Uterine anomaly No Oligohydramnios No Polyhydramnios No Multiple gestation No Past Medical History Asthma No Diabetes No Hypertension No Heart disease No Mitral valve prolapse No Neurologic/Seizure disorder/ No Migraines Kidney disease No Liver disease No Varicosities No Clotting disorders/Hx of DVT No Thyroid Dysfunction No Other medical diseases No Psychiatric disorders No Major trauma No Abnormal PAP smear No Sleep apnea No Mammogram in the last 2 years No Social History Marital Status: Alleged father Cesar Gambino Hx Smoking No Smoking Status Never smoker Expected Infant Delivery Method: Spontaneous Vaginal Review of Systems Constitutional: Denies: Fever, Malaise Eyes: Denies: Blurred vision, Vision Change HEENT: Denies: Head Aches, Visual Changes Cardiovascular: Denies: Chest Pain, Palpitations Respiratory: Denies: Cough, Shortness of Breath, Wheezing Gastrointestinal: Denies: Abdominal Pain, Diarrhea, Nausea, Vomiting Genitourinary: Denies: Dysuria, Hematuria Musculoskeletal: Denies: Joint Pain, Muscle pain Skin: Denies: Lesions, Rash Neurological: Denies: Blurred vision, Focal weakness, Headaches Psychiatric: Denies: Anxiety, Depression Endocrine: Denies: Heat/ Cold Intolerance Hematologic/ Lymphatic: Denies: Easy Bruising, Easy Bleeding Physical Exam General: Alert, Cooperative, No apparent distress HEENT: Atraumatic, Normocephalic. Negative for: Thyromegaly, Lymphadenopathy Cardiovascular: Regular rate Lungs: Normal air movement Abdomen: Soft, Non Tender, Gravid Neurological: Deep Tendon Reflexes 2+/4 and Symmetrical, Neuro grossly intact. Negative for: Clonus PIN CLEANER: Normal external genitalia. Negative for: Vulvar lesions Estimated gestational size: Appropriate for gestational size Presentation: Cephalic Assessment/Plan All Active Problems (Last Reviewed 09/14/18 @ 09:59 by Alessandra Joy) Gestational hypertension (Acute) Obesity affecting in third trimester (Acute) UTI in (Acute) (Acute) Supervision of normal first (Acute) Low lying placenta nos or without hemorrhage, second trimester (Resolved) This is a 23 year-old, at 39 weeks gestational age presents for induction of labor secondary to gestational hypertension. Patient presents IOL, plan management for , pitocin/AROM. Pain management: Refers minimal intervention but is open to all options. GBS negative. Management of any complications: Follow blood pressures and utilize medication if severely elevated I have reviewed the [facility] and made any clinically relevant updates.
[2018-09-14] MEDS: Lactated Ringers 1,000 ML 50 ML IV (15:18)
[2018-09-14] MEDS: Magnesium Sulfate 20 GM/500 ML BAG IV (15:21)
[2018-09-14] MEDS: Labetalol 100 MG Tablet PO (17:05)
[2018-09-15] VITALS (12 sets, daily range): BP systolic 111–139; BP diastolic 50–81; PULSE 85–112; RESP 16–18; TEMP 36.4–36.9; O2SAT 97–100
--- NOTE | 2018-09-15 | PLAC_PTH ---
PATIENT: LILLIAN ELLIS LOC: [facility] U#:[id number] AGE/SX: 23/F ROOM: WP009 RE09/14/[address]: Dr. Giovanna Long MD : 1995 BED: 1 DIS: 09/17/2018 SPEC #: [id number] RECD: 09/15/18 12:48 STATUS: MICHAEL REQ #: [id number] FREDI: 09/15/18 00:[address]: Giovanna Long DEPT: SURGICAL PATHOLOGY RECD BY: Justin Gordon ENTERED: 09/15/18 12:48 SP TYPE: PLACENTA OTHR DR: Dr. Edward Schaefer MD Tissues: Placenta, NOS Procedures: Surgery Specimen Level V HEADER OPERATION: Labor and delivery PRE-OP DIAGNOSIS: Vaginal delivery TISSUE SUBMITTED: Placenta MICROSCOPIC DIAGNOSIS Noonan placenta (516 gm): Umbilical cord - trivascular with acute funisitis. Placental membranes - acute chorioamnionitis and acute deciduitis. Placental disc - remote infarct with clustered microcalcifications, rare hydropic villi. Mild Esteban-Humberto change and mild increased intraparenchymal fibrin plaques. AM:carlos a 09/17/18 MICROSCOPIC DESCRIPTION Slides are reviewed. GROSS DESCRIPTION SPECIMEN: PLACENTA / CLINICAL INFORMATION: A. Weight: 3.547 kg B. Gestational Age: 39 weeks C. Sex: Male PLACENTAL WEIGHT (POST FIXATION): 516 gm PLACENTAL DIMENSIONS: 16 x 16 x 3 cm PLACENTAL SHAPE: Usual ovoid PLACENTAL WEIGHT FOR GESTATIONAL AGE: Within 10-99th percentile MEMBRANES - Present A. Insertion: Marginal B. Site of rupture from edge: Membranes are partly fragmented and appears to rupture at the margin of placental disc C. Color of membrane: Barnes-fairbanks D. Abnormalities: None UMBILICAL CORD - Present A. Color: Barnes-fairbanks B. Insertion: Central C. Length: 36 cm D. Diameter: 1.4 cm E. Number of vessels: Three F. Abnormalities: None PLACENTAL DISC - Present A. Color of surface: Barnes-fairbanks B. surface abnormalities: None C. Maternal cotyledons: Intact with minimal tears D. Attached retro placental clot: No clot E. Cut surface: Dark red and spongy F. Lesions: Sections reveal a barnes, indurated lesion in the peripheral portion of the placenta measuring 1 cm in greatest dimension. G. Separate clot: Absent SECTIONS SUBMITTED: 1. Membrane roll 2. Cord, maternal end 3. Cord, end 4. Placental disc, and maternal surfaces, lesion 5. Placental disc, and maternal surfaces 6. Placental disc, and maternal surfaces KRISTY:carlos a 09/16/18 TC:2 CPT: 55607
[2018-09-15] MEDS: Magnesium Sulfate 20 GM/500 ML BAG IV ×3 (01:11→22:35)
[2018-09-15] MEDS: Acetaminophen 325 MG Tablet PO ×2 (02:25→08:33)
[2018-09-15] MEDS: Lactated Ringers 1,000 ML 50 ML IV (04:37)
[2018-09-15] MEDS: fentaNYL-bupivacaine (epidural) 100 ML BAG EPIDURAL (04:51)
[2018-09-15] MEDS: Ondansetron 4 MG/2 ML Vial IV (08:14)
[2018-09-15] MEDS: 0.9% Saline Lock 10 ML Syringe IV (08:14)
[2018-09-15] MEDS: Oxytocin 30 units/NS 500 ml 30 UNITS/500 ML IV.SOLN 334 UNITS IV (09:33)
[2018-09-15] MEDS: Carboprost Tromethamine 250 MCG/ML Ampul IM (09:37)
--- NOTE | 2018-09-15 09:55 | OP.PCM_ITS ---
Problem List (1) Obesity affecting in third trimester Status: Acute Comment: weekly nsts after 32 weeks growth q 4 (2) UTI in Status: Acute Qualifiers: Comment: Ampicillin Rx. Repeat culture Neg (3) Status: Acute Qualifiers: Comment: Niall- low risk-pt notified. AFP results are negative. Anatomy US complete and normal (4) Supervision of normal first Status: Acute Qualifiers: Comment: PRR JESSI 09/18/18 Boy Hayley Spouse Cesar (5) Gestational hypertension Status: Acute Comment: severe in labor on magnesium, no proteinuria nl labs (6) Maternal fever affecting labor Status: Acute Vaginal Delivery Maternal Presentation: Medically Indicated Induction iol severe ghtn 39 weeks Medical Reason for Induction: Gestational Hypertension Amniotic Membrane Rupture Type: Artificial Amniotic Fluid Description: Clear Final JESSI: 09/18/18 Gestational age: 39 Weeks and 4 Days Date of Procedure: 09/15/18 Pre-Operative Diagnosis: severe gestational hypertension and suspected triple I Post-Operative Diagnosis: same plus uterine atony Surgery/ Procedure Performed: Spontaneous Vaginal Delivery Type of Anesthesia: Epidural Description of Procedure: Patient was induced for gestational hypertension and Pitocin was started. Patient developed severely elevated blood pressures and therefore magnesium was started and hypertensive protocol was started with IV labetalol. Blood pressure well controlled throughout labor there was a prolonged latent stage of labor and then the patient finally made progress to complete. Within an hour of coming complete and delivering the patient developed an elevated temperature of 100.6 a nd had maternal and tachycardia therefore a diagnosis of suspected triple I was made in antibiotics were ordered ampicillin and gentamicin. Patient began pushing and delivered the head in the INGE presentation. The head was delivered atraumatically. The anterior and posterior shoulders delivered without complication followed by the rest of the infant and the infant was placed on the maternal abdomen. Delayed cord clamping was employed for approximately 60 seconds. Cord was clamped and cut and gentle traction was applied to the cord and the placenta delivered spontaneously immediately following it was noted to be intact with three-vessel cord. The perineum and vagina were inspected and noted to have a first-degree perineal laceration that was repaired in the usual fashion with 3-0 Vicryl Rapide. EBL was 600 cc with some mild uterine atony treated with bimanual massage Pitocin and Hemabate. Patient and infant tolerated delivery well. Presentation: INGE Placental Delivery Description: Spontaneous Placenta Disposition: [facility] Cord Vessel Description: 3 Vessels Cord Entanglement: None Estimated Blood Loss: 600 Infant A gender: Male Episiotomy Description: None Laceration: Perineal Extension/lac, 1st degree Medications given after delivery: IV Pitocin, IM Hemabate Complications: - - suspected triple I Multi Select Codes - Urinary/Genital Urinary/Genital CPT Codes: 23166 Obstetrical Care + Vaginal Delivery
[2018-09-15] MEDS: Oxytocin 30 units/NS 500 ml 30 UNITS/500 ML IV.SOLN 167 UNITS IV (10:03)
[2018-09-15] MEDS: Labetalol 100 MG Tablet PO (10:04)
[2018-09-15 10:28] LABS: Pathology Specimen OB SEE PATHOLOGY REPORT
[2018-09-15] MEDS: Acetaminophen 500 MG Tablet 1000 MG PO (14:37)
[2018-09-15] MEDS: Lactated Ringers 1,000 ML 15 ML IV (19:49)
[2018-09-15] MEDS: Naproxen 250 MG Tablet 500 MG PO (19:49)
[2018-09-16] VITALS (13 sets, daily range): BP systolic 109–138; BP diastolic 56–90; PULSE 89–105; RESP 16–18; TEMP 36.5–37.1; O2SAT 96–99
--- NOTE | 2018-09-16 01:38 | NURSING ---
EBL at delivery 600ml, shayy pads weighed since delivery for a total of 282ml = 882ML EBL. ever green at this time- aware, plan to stop weighing peripads at this time
--- NOTE | 2018-09-16 04:38 | NURSING ---
pt reports frontal headache 6/10, requesting tylenol. denies visual disturbances
[2018-09-16] MEDS: Acetaminophen 500 MG Tablet 1000 MG PO ×2 (04:44→20:42)
[2018-09-16 06:06] LABS: Hematocrit 26.4 % (37-47); Hemoglobin 9.2 g/dL (12.0-15.0); Mean Corp Hgb Conc 34.8 g/dL (32-36); Mean Corpuscular Hgb 33.5 pg (27.0-32.0); Mean Platelet Vol. 10.2 fl (6.2-12.0); Platelet Count 185 K/mm3 (150-450); RBC Distribution Width CV 15.9 % (11.6-14.6); Red Blood Count 2.75 M/mm3 (4.2-5.4); White Blood Count 12.2 K/mm3 (4.4-11.0)
[2018-09-16 06:29] LABS: ALB/GLOB Ratio 0.6 RATIO (0.9-2.4); AST(SGOT) 15 U/L (15-37); Alanine Aminotransfer ALT/SGPT 14 U/L (13-56); Albumin, Serum 2.1 g/dL (3.2-5.0); Alkaline Phosphatase 132 U/L (45-117); Anion Gap 7 (5-15); BUN 8 mg/dL (7-18); BUN/Creat Ratio 13.1 RATIO (10-20); Calcium,Total 7.1 mg/dL (8.5-10.1); Chloride 108 mmol/L (98-107); Creatinine, Serum 0.61 mg/dL (0.55-1.02); EST Glomerular Filtration Rate 127 mL/min (>60); Est Glom Filt Rate - Afr Amer 154 mL/min (>60); Estimated Creatinine Clearance 143.45 ml/min; Globulin 3.3 g/dL (2.2-4.2); Glucose 108 mg/dL (74-106); Potassium 3.5 mmol/L (3.5-5.1); Protein, Total 5.4 g/dL (6.4-8.2); Sodium Level 140 mmol/L (136-145)
[2018-09-16] MEDS: Lactated Ringers 1,000 ML 1000 ML IV (10:01)
--- NOTE | 2018-09-16 10:08 | NURSING ---
Magnesium infusion discontinued at 0930 per physician order.
--- NOTE | 2018-09-16 19:08 | PCM.PN.OB ---
Patient Problems: Active and Suspected Problems (Last Reviewed 09/14/18 @ 09:59 by Alessandra Joy) Gestational hypertension (Acute) severe in labor on magnesium, no proteinuria nl labs Maternal fever affecting labor (Acute) Subjective: doing well no complaints pain controlled no CP SOB N V ambulating well tolerating po lochia moderate, going well - Physical Exam Vital Signs Temp Pulse Resp BP Pulse Ox 98.5 F 105 H 16 115/76 97 09/16/18 14:45 09/16/18 14:45 09/16/18 14:45 09/16/18 14:45 09/16/18 14:45 Oxygen Delivery Method Room Air Weight: 298 lb 12.8 oz Body Mass Index (BMI) 45.4 Intake and Output for Last 24 Hours 09/14/18 09/15/18 09/16/18 23:59 23:59 23:59 Intake Total 583.5 / 583.5 5400 / 5400 1099 / 1099 Output Total 800 / 800 3915 / 3915 500 / 500 Balance -216.5 / -216.5 1485 / 1485 599 / 599 Laboratory Tests Past 24 Hrs 09/16/18 09/16/18 05:50 05:50 WBC 12.2 H RBC 2.75 L Hgb 9.2 L Hct 26.4 L MCV 96.0 MCH 33.5 H MCHC 34.8 RDW Std Deviation 55.0 H RDW Coeff of Kulwinder 15.9 H Plt Count 185 MPV 10.2 Sodium 140 Potassium 3.5 Chloride 108 H Carbon Dioxide 25.0 Anion Gap 7 BUN 8 Creatinine 0.61 Estim Creat Clear Calc 143.45 Est GFR (MDRD) Af Amer 154 Est GFR (MDRD) Non-Af 127 BUN/Creatinine Ratio 13.1 Glucose 108 H Calcium 7.1 L Total Bilirubin 0.30 AST 15 ALT 14 Alkaline Phosphatase 132 H Total Protein 5.4 L Albumin 2.1 L Globulin 3.3 Albumin/Globulin Ratio 0.6 L Medical Necessity - Tobacco Use Smoking Status: Never smoker Assessment/Plan All Active Problems (Last Reviewed 09/14/18 @ 09:59 by Alessandra Joy) Gestational hypertension (Acute) Maternal fever affecting labor (Acute) Obesity affecting in third trimester (Acute) UTI in (Acute) (Acute) Supervision of normal first (Acute) Low lying placenta nos or without hemorrhage, second trimester (Resolved) s/p PPD # 1 1. routine post delivery care 2. breast feeding- support given 3. rh positive 4. rubella immune post 24 hours of magnesium for severe GHTN. bps stable without meds and labs stable
[2018-09-17 02:11] VITALS: BP 132/69; PULSE 95; RESP 16; TEMP 36.3
--- NOTE | 2018-09-17 08:03 | PCM.PN.OB ---
Patient Problems: Active and Suspected Problems (Last Reviewed 09/14/18 @ 09:59 by Alessandra Joy) Gestational hypertension (Acute) severe in labor on magnesium, no proteinuria nl labs Maternal fever affecting labor (Acute) Subjective: doing well no complaints pain controlled no CP SOB N V ambulating well tolerating po lochia moderate, going well - Physical Exam General: Alert, Oriented x3 Abdomen: Soft, Non Tender, - - FF below U Vital Signs Temp Pulse Resp BP Pulse Ox 97.4 F L 95 16 132/69 H 98 09/17/18 02:11 09/17/18 02:11 09/17/18 02:11 09/17/18 02:11 09/16/18 20:35 Oxygen Delivery Method Room Air Weight: 298 lb 12.8 oz Body Mass Index (BMI) 45.4 Intake and Output for Last 24 Hours 09/15/18 09/16/18 09/17/18 23:59 23:59 23:59 Intake Total 5400 / 5400 1099 / 1099 Output Total 3915 / 3915 500 / 500 Balance 1485 / 1485 599 / 599 Medical Necessity - Tobacco Use Smoking Status: Never smoker Assessment/Plan All Active Problems (Last Reviewed 09/14/18 @ 09:59 by Alessandra Joy) Gestational hypertension (Acute) Maternal fever affecting labor (Acute) Obesity affecting in third trimester (Acute) UTI in (Acute) (Acute) Supervision of normal first (Acute) Low lying placenta nos or without hemorrhage, second trimester (Resolved) s/p PPD # 2 1. routine post delivery care 2. breast feeding- support given 3. rh positive 4. rubella immune 5. BP WNL 6. Plans home today
[2018-09-17 08:05] VITALS: BP 129/85; PULSE 89; RESP 16; TEMP 37.1
--- NOTE | 2018-09-17 08:05 | DCINST_ITS ---
Additional Instructions: If you experience any of the following, contact your healthcare provider. * Bleeding that soaks a pad every hour for 2 hours * Fever 100.4 or higher * Unrelieved incision or abdominal pain * Swelling, redness, discharge or bleeding from your incision or episiotomy site * Your incision begins to separate * Problems urinating (including inability to urinate or burning while urinating). * Visual changes * Severe headache * Flu-like symptoms * Pain or redness in one of both of your breasts * Pain, warmth, tenderness or swelling in your legs, especially the calf area * Frequent nausea and vomiting * Symptoms of depression or anxiety If you experience any of the following, call 911 or go to the nearest Emergency Room. * Chest pain * Problems breathing * Seizure activity * Partial or complete paralysis of a body part, slurred speech, weakness or drooping of the face, or a sudden inability to walk or hold your balance Allergies/Adverse Reactions: Allergies oxycodone [From Percocet] Adverse Reaction (Verified 09/14/18 09:59) Nausea Medications to take at Discharge vitamin#30 30 mg iron-10 mg iron-folic acid 1 mg-omg3 capsule 1 cap PO DAILY cap 01/27/18 Acetaminophen [Tylenol] 650 mg PO Q6H PRN PRN 09/14/18 Primary Care Physician: Edward Schaefer MD [Primary Care Provider] - Test Results: Test results from this visit will be discussed in further detail at your follow- up appointment, if applicable.
--- NOTE | 2018-09-17 08:05 | PCM.DCVAG ---
Additional Instructions: If you experience any of the following, contact your healthcare provider. Bleeding that soaks a pad every hour for 2 hours Fever 100.4 or higher Unrelieved incision or abdominal pain Swelling, redness, discharge or bleeding from your incision or episiotomy site Your incision begins to separate Problems urinating (including inability to urinate or burning while urinating). Visual changes Severe headache Flu-like symptoms Pain or redness in one of both of your breasts Pain, warmth, tenderness or swelling in your legs, especially the calf area Frequent nausea and vomiting Symptoms of depression or anxiety If you experience any of the following, call 911 or go to the nearest Emergency Room. Chest pain Problems breathing Seizure activity Partial or complete paralysis of a body part, slurred speech, weakness or drooping of the face, or a sudden inability to walk or hold your balance Allergies/Adverse Reactions: Allergies oxycodone [From Percocet] Adverse Reaction (Verified 09/14/18 09:59) Nausea Medications to take at Discharge vitamin#30 30 mg iron-10 mg iron-folic acid 1 mg-omg3 capsule 1 cap PO DAILY cap 01/27/18 Acetaminophen [Tylenol] 650 mg PO Q6H PRN PRN 09/14/18 Primary Care Physician: Edward Schaefer MD [Primary Care Provider] - Test Results: Test results from this visit will be discussed in further detail at your follow-up appointment, if applicable.
== END 2018-09-17 09:15 | disposition home or self-care (01) | DRG 805 ==
LOC: OBT 12:31 → WP 12:31
PROVIDERS: Pediatrics; Admitting Provider Obstetrics & Gynecology; Family Provider Family Medicine; PCP Family Medicine; Referring Provider Obstetrics & Gynecology; Visit Provider Obstetrics & Gynecology
DX: O13.4 Gestational [pregnancy-induced] hypertension without significant proteinuria, complicating childbirth (principal); O41.1230 Chorioamnionitis, third trimester, not applicable or unspecified; O72.1 Other immediate postpartum hemorrhage; O70.0 First degree perineal laceration during delivery; O76 Abnormality in fetal heart rate and rhythm complicating labor and delivery; O99.214 Obesity complicating childbirth; E66.9 Obesity, unspecified; Z87.440 Personal history of urinary (tract) infections; Z3A.39 39 weeks gestation of pregnancy; Z37.0 Single live birth
CPT/HCPCS: 36415; 59025; 59050; 80053; 82570; 84156; 85027; 85384; 86850; 86900; 88307; 99218; J7120; A4216; G0378; J2405

== ENCOUNTER 2019-07-18 19:18 | Emergency (ER) | payer OTHER, SELFPAY ==
[2019-01-18 14:59] VITALS: BMI 45.4
[2019-07-18 19:19] VITALS: BP 151/93; PULSE 89; RESP 15; TEMP 36.7; O2SAT 100; BMI 44.4
--- NOTE | 2019-07-18 19:51 | ED.DCSUM_ITS ---
History of Present Illness Chief Complaint: General Illness Informant: Patient Onset: Yesterday Current Severity: Mild Maximum Severity: Moderate Narrative: Patient presents with headache, nausea, fatigue, generalized body aches that started yesterday. She had decreased appetite. She denies having fever or cough. 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 - Past Medical History (1) Hypertension Status: Chronic (2) Depression Status: Chronic Past Medical History - Allergies and Home Meds Allergies/Adverse Reactions: Allergies oxycodone [From Percocet] Adverse Reaction (Verified 07/18/19 19:22) Nausea Primary Care Physician: Criss Gutiérrez NP-C [Primary Care Provider] - Prior records reviewed: Yes Lives: With Family Smoking Status: Never smoker Review of Systems General: Denies: Chills, Fever Eyes: Denies: Visual changes - bilaterally ENT: Denies: Bilateral ear pain Respiratory: Denies: Dyspnea, Cough Gastrointestinal: Denies: Abdominal pain, Nausea, Vomiting, Diarrhea Genitourinary: Denies: Dysuria Musculoskeletal: Reports: Myalgias Neurological: Reports: Headache Hematologic: Denies: Easy bruising, Easy bleeding Allergy: Denies: Uticaria Physical Exam Vital Signs/Narrative: Vital Signs Temp Pulse Resp BP Pulse Ox 07/18/19 19:19 98.0 F 89 15 151/93 H 100 Inital Vital Signs reviewed: Yes General: Well nourished, Well developed Head: Normocephalic ENT: Moist mucous membranes Neck: Supple Cardiovascular: Regular rate, Regular rhythm Respiratory: No distress, CTA bilaterally Abdomen: Soft, Nontender, Nondistended Back: Nontender Extremities: Nontender, No edema Skin: Normal color, No rash Neurological: Alert, Oriented x3 Psychological: Normal affect Diagnostic/Tx/Re-eval Laboratory Results 07/18/19 07/18/19 07/18/19 20:04 20:04 20:04 WBC 5.3 RBC 4.47 Hgb 13.1 Hct 38.7 MCV 86.6 MCH 29.3 MCHC 33.9 RDW Std Deviation 41.5 RDW Coeff of Kulwinder 13.2 Plt Count 246 MPV 9.9 Immature Gran % (Auto) 0.200 Neut % (Auto) 58.3 Lymph % (Auto) 34.9 Brewster % (Auto) 5.8 Eos % (Auto) 0.4 Baso % (Auto) 0.4 Absolute Neuts (auto) 3.1 Absolute Lymphs (auto) 1.86 Nucleated RBC % 0 Sodium 142 Potassium 3.8 Chloride 107 Carbon Dioxide 29.0 Anion Gap 6 BUN 16 Creatinine 0.72 Estim Creat Clear Calc 120.49 Est GFR (MDRD) Af Amer 126 Est GFR (MDRD) Non-Af 105 BUN/Creatinine Ratio 22.2 H Glucose 87 Calcium 9.6 HCG, Quant Serum , Qual POSITIVE H Urine Color Urine Clarity Urine pH Ur Specific [place] Urine Protein Urine Glucose (UA) Urine Ketones Urine Occult Blood Urine Nitrite Urine Bilirubin Urine Urobilinogen Ur Leukocyte Esterase Urine RBC Urine WBC Ur Squamous Epith Cells Urine Bacteria Urine Mucus 07/18/19 07/18/19 20:04 20:04 WBC RBC Hgb Hct MCV MCH MCHC RDW Std Deviation RDW Coeff of Kulwinder Plt Count MPV Immature Gran % (Auto) Neut % (Auto) Lymph % (Auto) [place] % (Auto) Eos % (Auto) Baso % (Auto) Absolute Neuts (auto) Absolute Lymphs (auto) Nucleated RBC % Sodium Potassium Chloride Carbon Dioxide Anion Gap BUN Creatinine Estim Creat Clear Calc Est GFR (MDRD) Af Amer Est GFR (MDRD) Non-Af BUN/Creatinine Ratio Glucose Calcium HCG, Quant 20 H Serum , Qual Urine Color Red Urine Clarity Turbid Urine pH 7.0 Ur Specific [place] 1.020 Urine Protein 100 H Urine Glucose (UA) Normal Urine Ketones Negative Urine Occult Blood 250 H Urine Nitrite Negative Urine Bilirubin Negative Urine Urobilinogen Normal Ur Leukocyte Esterase Negative Urine RBC > 100 SEEN Urine WBC 0-5 SEEN Ur Squamous Epith Cells 0-5 SEEN Urine Bacteria RARE Urine Mucus 0 SEEN - Medical Decision Making Test results are discussed with the patient. She states she did to start her period today is currently having vaginal bleeding. She is not having pelvic pain or cramping. At this time her quant is only 20. I did advise her that she could be just extremely early in her , or her quant may be dropping and she is currently bleeding and having a miscarriage. She will have her blood work redrawn in 2 days. 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 Her symptoms could be related to the Covid with her headache and body aches with fatigue. I did speak with [facility], however they declined her test stating that she did not have the right symptoms. Her test was sent to [facility] and she was advised that she would be called with the results. ED Disposition - Plan for ED Patient: Disposition: Home or Assisted Living Diagnosis: Early stage of Referrals: Criss Gutiérrez, PROCESS DEVELOPMENT MANAGER-C [Primary Care Provider] - 1 Week if not improving Additional Instructions: As discussed, your bloodwork indicates very early . You will need to have a repeat hormone level drawn in 48 hours. [facility] 3 days to result. You will be called with these results.
[2019-07-18] MEDS: Ketorolac 30 MG/ML Syringe IV (20:10)
[2019-07-18] MEDS: 0.9% Normal Saline 1,000 ML 150 ML IV (20:10)
[2019-07-18 20:16] LABS: Mucous, Urine 0 SEEN /hpf (<or=2+)
[2019-07-18 20:19] LABS: Color, Urine Red (Yellow); Glucose, Dipstick Normal (Normal); Ketone-Dipstick Negative (Negative); Leukocyte Esterase-Dipstick Negative /ul (Negative); Nitrite-Dipstick Negative (Negative); Occult Blood-Urine 250 /ul (Negative); Protein-Dipstick 100 mg/dl (Negative); Urine Bilirubin Dipstick Negative (Negative); Urine Clarity Turbid (Clear); Urine Urobilinogen Normal (Normal)
[2019-07-18 20:20] LABS: Absolute Lymphocyte Count 1.86 X10^3/uL (0.83-4.51); Absolute Neutrophil Count 3.1 X10^3/uL (2.0-7.7); Basophil# 0.02 X10^3/uL; Basophil% 0.4 % (0-1); Eosinophil# 0.02 X10^3/uL; Eosinophils% 0.4 % (0-5); Hematocrit 38.7 % (37-47); Hemoglobin 13.1 g/dL (12.0-15.0); Lymphocyte # 1.86 X10^3/ul (4.0); Lymphocyte % 34.9 % (19-41); Mean Corp Hgb Conc 33.9 g/dL (32-36); Mean Corpuscular Hgb 29.3 pg (27.0-32.0); Mean Corpuscular Volume 86.6 fL (81-99); Mean Platelet Vol. 9.9 fl (6.2-12.0); Monocyte# 0.31 X10^3/uL; Monocyte% 5.8 % (0-10); NRBC Flagged by Analyzer 0 % (0-5); Neutrophil # 3.11 X10^3/uL (2.7-7.7); Neutrophil % 58.3 % (47-70); Platelet Count 246 K/mm3 (150-450); RBC Distribution Width CV 13.2 % (11.6-14.6); RBC Distribution Width SD 41.5 fl (35.1-43.9); Red Blood Count 4.47 M/mm3 (4.2-5.4); White Blood Count 5.3 K/mm3 (4.4-11.0)
[2019-07-18 20:35] LABS: Internal QC Validated? YES +Cl - CLEAR BKGD; Red Blood Cells-Urine > 100 SEEN /hpf (0-5); White Blood Cells 0-5 SEEN /hpf (0-5)
[2019-07-18 20:36] LABS: Anion Gap 6 (5-15); BUN 16 mg/dL (7-18); BUN/Creat Ratio 22.2 RATIO (10-20); Bacteria RARE /hpf (None Seen); Calcium,Total 9.6 mg/dL (8.5-10.1); Chloride 107 mmol/L (98-107); Creatinine, Serum 0.72 mg/dL (0.55-1.02); EST Glomerular Filtration Rate 105 mL/min (>60); Est Glom Filt Rate - Afr Amer 126 mL/min (>60); Estimated Creatinine Clearance 120.49 ml/min; Glucose 87 mg/dL (74-106); Potassium 3.8 mmol/L (3.5-5.1); Sodium Level 142 mmol/L (136-145); Squamous Epithelial Cells - UA 0-5 SEEN /hpf (5-10)
[2019-07-18 20:39] LABS: Pregnancy, Serum, hCG Quali. POSITIVE Negative
[2019-07-18 20:59] VITALS: BP 152/89; PULSE 97; RESP 15; O2SAT 98
[2019-07-18 21:06] LABS: hCG Titer Quant., Serum 20 mIU/mL (1-3)
[2019-07-18 22:17] VITALS: BP 138/78; PULSE 79; RESP 18; O2SAT 96
== END 2019-07-18 22:18 | disposition home or self-care (01) ==
PROVIDERS: Emergency Provider Emergency Medicine; PCP Nurse Practitioner Family
DX: O26.811 Pregnancy related exhaustion and fatigue, first trimester (principal); O99.89 Other specified diseases and conditions complicating pregnancy, childbirth and the puerperium; R51 Headache; O10.911 Unspecified pre-existing hypertension complicating pregnancy, first trimester; O99.341 Other mental disorders complicating pregnancy, first trimester; F32.9 Major depressive disorder, single episode, unspecified; Z3A.00 Weeks of gestation of pregnancy not specified
CPT/HCPCS: 80048; 81001; 84702; 84703; 85025; 87635; 96361; 96374; 99283; G2023; J7030; A4216; U0003

== ENCOUNTER → 2019-07-20 08:54 | Outpatient (CLI) | payer OTHER, SELFPAY ==
[2019-07-18 19:19] VITALS: BMI 44.4
[2019-07-20 09:54] LABS: hCG Titer Quant., Serum 45 mIU/mL (1-3)
== END ==
PROVIDERS: PCP Nurse Practitioner Family; Referring Provider Emergency Medicine; Visit Provider Emergency Medicine
DX: N93.9 Abnormal uterine and vaginal bleeding, unspecified (principal)
CPT/HCPCS: 36415; 84702

== ENCOUNTER → 2019-07-22 09:47 | Outpatient (CLI) | payer OTHER, SELFPAY ==
[2019-07-18 19:19] VITALS: BMI 44.4
[2019-07-22 10:47] LABS: hCG Titer Quant., Serum 90 mIU/mL (1-3)
== END ==
PROVIDERS: PCP Nurse Practitioner Family; Referring Provider Nurse Practitioner Women's Health; Visit Provider Nurse Practitioner Women's Health
DX: O20.0 Threatened abortion (principal); Z3A.00 Weeks of gestation of pregnancy not specified
CPT/HCPCS: 36415; 84702

== ENCOUNTER → 2022-03-26 | Outpatient (CLI) | payer OTHER, SELFPAY ==
[2022-03-26 15:22] LABS: AST(SGOT) 9 U/L (15-37); Alanine Aminotransfer ALT/SGPT 19 U/L (13-56); Albumin, Serum 3.8 g/dL (3.2-5.0); Alkaline Phosphatase 132 U/L (45-117); Anion Gap 9 (5-15); BUN 11 mg/dL (7-18); BUN/Creat Ratio 17.3 RATIO (10-20); Calcium,Total 9.2 mg/dL (8.5-10.1); Chloride 105 mmol/L (98-107); Cholesterol 174 mg/dL (200); Creatinine, Serum 0.64 mg/dL (0.55-1.02); EST Glomerular Filtration Rate 118 mL/min (>60); Est Glom Filt Rate - Afr Amer 143 mL/min (>60); Glucose 80 mg/dL (74-106); High Density Lipoprotein 60 mg/dL; Potassium 3.8 mmol/L (3.5-5.1); Protein, Total 7.8 g/dL (6.4-8.2); Sodium Level 137 mmol/L (136-145); Thyroid Stim Hormone (TSH) 1.24 uIU/mL (0.358-3.74); Triglycerides 106 mg/dL; Very Low Density Lipoprotein 21 mg/dL (5-40)
[2022-03-26 15:50] LABS: Hemoglobin A1c 4.4 % (3.8-5.6)
== END | disposition home or self-care (01) ==
LOC: MFPLAB 12:25
PROVIDERS: PCP Family Medicine; Referring Provider Family Medicine; Visit Provider Family Medicine
DX: E66.3 Overweight (principal)
CPT/HCPCS: 36415; 80053; 80061; 83036; 84443